=== PATIENT | male | born 1960 | race Caucasian/White ===

== ENCOUNTER 2017-07-29 16:52 | Inpatient (IN) | payer OTHER ==
[~2017-07-29] VITALS: Ht 172.7 cm; Wt 69.9 kg
[~2017-07-29 16:52] MED LIST: ALPRAZOLAM0.5 M4 PO; ASPIRIN EC81 M1 PO; AVODART0.5 M1 PO; CLARINEX5 M1 PO; GABAPENTIN300 M2 PO; HUMALOG100 UNIT/2 SC; LEVOTHYROXINE112 MCG PO; PRAVASTATIN SOD20 M2 PO; RAMIPRIL10 M1 PO; SERTRALINE HCL100 MG PO; VITAMIN D31000 UNI1 PO; [UNRECOGNIZED DRUG - OTHER]
--- NOTE | 2017-07-29 17:10 | ED GI/GU/ABDOMINAL COMPLAINT ---
History of Present Illness General Chief Complaint: General Adult Stated Complaint: BIBA HYPERGLYCEMIA Source: patient, old records Exam Limitations: no limitations Vital Signs & Intake/Output Vital Signs & Intake/Output Vital Signs Date Time Temp Pulse Resp B/P B/P Pulse O2 O2 Flow FiO2 Mean Ox Delivery Rate 07/30 0800 98.4 74 22 100/42 96 Room Air 04/ 0000 99.5 92 18 92/53 99 Room Air / 2110 98.7 108 28 120/62 100 Room Air 07/29 1953 96.7 108 28 124/63 99 Room Air / 1908 96.8 108 28 127/64 99 Room Air ED Intake and Output 07/30 0000 04/08 1200 Intake Total 2223 Output Total Balance 2223 Intake, IV 2223 Patient 154 lb Weight Weight Reported by Patient Measurement Method Allergies Coded Allergies: No Known Allergies (10/04/15) Triage Note: BIBA FROM HOME WITH CHIEF COMPLAINT "MY SUGAR IS HIGH". PER EMS PATIENT HAS ELEVATED BLOOD SUGAR ABOVE 500 ON ACCUCHECK. PATIENT REPORTS NAUSEA AND VOMITING. STATES HE WAS SEEN YESTERDAY IN ER FOR SAME COMPLAINT. HAS INSULIN PUMP THAT HAS NOT BEEN WORKING. PATIENT IS ALERT, ORIENTED, SPEECH CLEAR. AWAITING PROVIDER EVAL. Triage Nurses Notes Reviewed? yes Onset: Gradual Duration: getting worse Timing: recent history Quality/Severity: aching Severity Numbers: 7 Radiation: no radiation HPI: Patient is a 56-year-old male with a past medical history of hypothyroidism, hypercholesterolemia, restless leg syndrome type 1 diabetes with insulin pump and diabetic retinopathy who presents emergency room for concerns of elevated blood sugar and shaky chills and body aches in which she noted blood sugar to be over 500 on day today. Patient has had persistent nausea and vomiting, patient was evaluated here yesterday [facility] [place] [facility] for similar complaints in which he was safely discharged. (Sylvia LUJAN,Doyle) Reconcile Medications Alprazolam 0.5 MG TABLET 1 TAB PO TID PRN ANXIETY (Reported) Aspirin (Ecotrin*) 81 MG TABLET.DR 1 TAB PO DAILY HEART/BLOOD (Reported) Cholecalciferol (Vitamin D3) (Vitamin D3) (Unknown Strength) CAPSULE (Unknown Dose) PO DAILY SUPPLEMENT (Reported) Desloratadine (Clarinex) 5 MG TABLET 1 TAB PO DAILY ALLERGIES (Reported) Dutasteride (Avodart) 0.5 MG CAPSULE 1 CAP PO DAILY PROSTATE (Reported) Gabapentin 300 MG CAPSULE 1 CAP PO 4 TIMES/DAY NERVE PAIN (Reported) Gabapentin 300 MG CAPSULE 300 MG PO BID pain Heparin (Heparin-1/2NS 25,000 Units/500) 25,000 UNIT/500 ML (50 UNIT/ML) IV.SOLN 1 BAG IV ONCE SD Insulin Aspart (Novolog) 100 UNIT/ML VIAL 0 SC Q4 DM TYPE 1 Blood Insulin Sugar Units <150 0 151-200 3 201-250 4 251-300 5 301-350 6 351-400 7 >400 8 Call Doctor Insulin Detemir (Levemir) 100 UNIT/ML VIAL 7 UNIT SC BID DM TYPE 1 Levothyroxine Sodium 112 MCG TABLET 1 TAB PO DAILY AC THYROID (Reported) Ondansetron HCl/Pf (Ondansetron HCl 4 MG/2 Ml Vial) 4 MG/2 ML VIAL 4 MG IV Q6P PRN NAUSEA/VOMITING Pantoprazole Sodium 40 MG VIAL 40 MG IV DAILY GI ppt Pravastatin Sodium 20 MG TABLET 1 TAB PO DAILY CHOLESTEROL (Reported) Ramipril 10 MG CAPSULE 1 CAP PO BID BP (Reported) Sertraline HCl 100 MG TABLET 0.5 TAB PO DAILY MENTAL HEALTH (Reported) [Veramy] (Reported) (Lynda LOPEZ,Debo Arriaga) Past History Travel History Traveled to [place] past 21 day No Medical History Any Pertinent Medical History? 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 No (Doyle De Santiago) Review of Systems Review of Systems Constitutional: Reports: see HPI, chills. EENTM: Reports: no symptoms. Respiratory: Reports: no symptoms. Cardiovascular: Reports: no symptoms. GI: Reports: see HPI, nausea, vomiting. Denies: abdominal pain. Genitourinary: Reports: no symptoms. Musculoskeletal: Reports: see HPI, joint pain, muscle pain. Skin: Reports: no symptoms. Neurological/Psychological: Reports: see HPI. Hematologic/Endocrine: Reports: no symptoms. Immunologic/Allergic: Reports: no symptoms. All Other Systems: Reviewed and Negative (Doyle De Santiago) Physical Exam Physical Exam General Appearance: lethargic, mild distress Head: atraumatic Eyes: Bilateral: normal appearance. Ears, Nose, Throat, Mouth: hearing grossly normal Neck: normal inspection Respiratory: normal breath sounds, chest non-tender Cardiovascular: tachycardia Gastrointestinal: normal bowel sounds, soft, non-tender Extremities: normal range of motion Neurologic/Psych: no motor/sensory deficits, oriented x 3 Skin: intact, normal color Core Measures ACS in differential dx? Yes Sepsis Present: Yes Sepsis Focused Exam Completed? Yes (Doyle De Santiago) Progress Differential Diagnosis: appendicitis, biliary colic, bowel obstruction, cholecystitis, diverticulitis, gastritis, ischemic bowel, SBO Plan of Care: Orders Procedure Date/time Status Nothing by Mouth 07/30 B Active TROPONIN LEVEL 07/30 1200 Complete ICU LAB BUNDLE 07/30 1200 Complete EKG 07/30 1200 Active PARTIAL THROMBOPLASTIN TIME 07/30 1000 Complete Change service to 07/30 0845 Active CULTURE,URINE 07/30 0757 Active CULTURE,URINE 07/30 0635 Active TROPONIN LEVEL 07/30 0600 Complete EKG 07/30 0600 Active ICU LAB BUNDLE 07/30 0500 Complete GLYCOSYLATED HGB 07/30 0500 Complete CBC WITHOUT DIFFERENTIAL 07/30 0500 Complete Heparin Drip- ACS 07/30 0235 Active PARTIAL THROMBOPLASTIN TIME 07/30 0150 Complete Lab Add-on Test 07/30 0028 Active Lab Add-on Test 07/30 UNK Active Straight Cath 07/30 UNK Complete Sanchez, Insertion/Removal/Asses 07/30 UNK Active Wound Care/Dressing 07/29 2343 Active Weight 07/29 2343 Active VTE Mechanical Prophylaxis 07/29 2343 Active Vital Signs 07/29 2343 Active Turn and Reposition 07/29 2343 Active Drains/Tubes 07/29 2343 Active Teach/Educate 07/29 2343 Active Skin Integrity Protocol 07/29 2343 Active Skin/Pressure Ulcer Assess (Sk 07/29 2343 Active Precautions 07/29 2343 Active Pain Treatment and Response 04/08 2343 Active Nutritional Intake, Monitor 07/29 2343 Active Isolation 07/29 2343 Active CIWA 07/29 234 Active Patient Care Conference 07/29 234 Active Activity/Ambulation 07/29 234 Active TROPONIN LEVEL 07/29 2330 Complete LACTIC ACID 07/29 2330 Complete EKG 07/29 2330 Active BASIC ELECTROLYTES PLUS BUN&CR 07/29 2315 Complete VRE ACTIVE SURVIELLANCE 07/29 2199 Active MRSA SCREENING 07/29 220 Active EKG 07/29 213 Active ICU LAB BUNDLE 07/29 2129 Complete Lab Add-on Test 07/29 204 Active TROPONIN LEVEL 07/29 2030 Complete EKG 07/29 2030 Active ICU LAB BUNDLE 07/29 2020 Complete Lab Add-on Test 07/29 193 Active BLOOD CULTURE 07/29 1928 Active URINALYSIS 07/29 1928 Complete Saline Lock 07/29 1925 Active Pathway - chart 07/29 1925 Active House Staff 07/29 1925 Active Code Status 07/29 192 Active THYROID STIMULATING HORMONE 07/29 1726 Complete INSULIN,SERUM 07/29 1726 Complete FREE T4 07/29 1726 Complete CORTISOL PM 07/29 1726 Complete VTE Mechanical Prophylaxis 07/29 UNK Active Vital Signs 07/29 UNK Active Intake & Output 07/29 UNK Active Hemoccult 07/29 UNK Active FingerStick- Glucose 07/29 UNK Active Current Medications Sig/Mary Start time Last Medication Dose Stop Time Status Admin Lisinopril 40 MG BID 07/30 1000 CAN (Prinivil) Potassium Chloride 20 MEQ CONTINOUS INFUSION 07/30 0700 CAN (KCl 20MEQ in D5W 1/ 2NS 1000ML) Sodium Bicarbonate 150 MEQ Q8H 07/30 0430 CAN (Sodium Bicarbonate 8.4%) Dextrose/Water 1,000 ML (D5W 1000) Laboratory Tests 07/30/17 1150: Anion Gap 8, Estimated GFR 39 L, Glucose 92, Calcium 8.3 L, Phosphorus 3.5, Magnesium 1.9, Total Bilirubin 0.4, AST 64 H, ALT 36, Troponin I 17.50 *H, Albumin 2.6 L, APTT 41 H 07/30/17 0645: Urine Color YEL, Urine Clarity CLEAR, Urine pH 6.0, Ur Specific Fountain 1.020, Urine Protein NEG, Urine Ketones 15 H, Urine Nitrite NEG, Urine Bilirubin NEG, Urine Urobilinogen 0.2, Ur Leukocyte Esterase NEG, Ur Microscopic EXAM NOT REQUIRED, Urine Hemoglobin NEG, Urine Glucose >=1000 H 07/30/17 0600: Troponin I 16.00 *H 07/30/17 0600: Anion Gap 10, Estimated GFR 37 L, Glucose 246 H, Calcium 8.2 L, Phosphorus 3.3, Magnesium 1.9, Total Bilirubin 0.4, AST 55, ALT 32, Albumin 3.0 L, CBC w Diff MAN DIFF ORDERED, RBC 3.50 L, MCV 89.6, MCH 30.7, MCHC 34.3, RDW 14.1, MPV 9.6, Gran % 87.1 H, Lymphocytes % 6.2 L, Monocytes % 6.7, Eosinophils % 0, Basophils % 0, Absolute Granulocytes 19.8 H, Segmented Neutrophils 86 H, Band Neutrophils 1, Absolute Lymphocytes 1.4, Lymphocytes 10 L, Monocytes 2, Absolute Monocytes 1.5 H, Absolute Eosinophils 0, Absolute Basophils 0, Metamyelocytes 1, Platelet Estimate ADEQUATE, Polychromasia 1+, Ovalocytes FEW, Fld Total RBCs Counted 100 07/30/17 0500: Hemoglobin A1c 7.9 H 07/30/17 0210: APTT 111 *H 07/29/17 2315: Anion Gap 16, Estimated GFR 35 L, BUN/Creatinine Ratio 24.0, Lactic Acid 1.6, Troponin I 3.98 *H 07/29/17 2150: Anion Gap 18 H, Estimated GFR 35 L, Glucose 512 *H, Calcium 7.8 L, Phosphorus 3.9, Magnesium 1.9, Total Bilirubin 0.5, AST 25, ALT 25, Albumin 3.0 L 07/29/17 2130: Sodium Cancelled, Potassium Cancelled, Chloride Cancelled, Carbon Dioxide Cancelled, Anion Gap Cancelled, BUN Cancelled, Creatinine Cancelled, BUN/ Creatinine Ratio Cancelled 07/29/172019: Troponin I 1.02 *H 07/29/172019: Lactic Acid 2.5 H 07/29/172019: Bicarbonate Actual 11 L, Mixed VBG pH 7.21 L, Mixed VBG pCO2 28 L, Mixed VBG O2 Saturation 51 H, Carboxyhemoglobin 0.2 L, O2 Concentration % R/A, Anion Gap 20 H, Estimated GFR 33 L, Glucose 555 *H, Calcium 8.0 L, Phosphorus 4.8 H, Magnesium 1.9, Total Bilirubin 0.5, AST 22, ALT 28, Albumin 3.3 L, Phlebotomy Draw Site VENOUS Microbiology 07/30 112 URINE ROUT: Urine Culture - RECD 07/30 644 URINE ROUT: Urine Culture - RECD 07/29 2199 UPPER RESP: Surveillance Culture - RECD 07/29 2199 GI: Surveillance Culture - RECD 07/30 2019 BLOOD: Blood Culture - RES 07/29 2008 BLOOD: Blood Culture - RES 07/29 1928 URINE ROUT: Urine Culture - CAN Cancelled: NO URINE COLLECTED ON THIS DATE Differential diagnosis include hyper glycemia, diabetic ketoacidosis,HHS, myocardial infarction viral syndrome cholecystitis cholangitis Nursing staff indicates that patient's blood glucose fingerstick was over 500 patient is alert and oriented nontender abdomen Patient's critical findings of elevated troponin and concerns of DKA and acute renal failure IV fluids were initially administered however insulin bolus and drip were ordered patient's potassium was unremarkable discussed admission with patient who is aware Although patient does meet sepsis criteria no overt findings of bacterial infection at this time after CT scan was resulted No antibiotics will be administered upon admission And most likely DKA caused leukocytosis Dr. Howell also was aware admission and discussed patient with Dr. Fry for elevated troponin Diagnostic Imaging: Viewed by Me: Radiology Read, CT Scan. Radiology Impression: no acute abnormality Initial ED EKG: SINUS TACHYCARDIA 110 BPM Comments: PATIENT: DEBO RUBALCAVA PRESENT AGE: 56 PATIENT ACCOUNT NO: [id number] : 58 LOCATION: [facility] ORDERING PHYSICIAN: Doyle LUJAN SERVICE DATE: 07/29/17 EXAM TYPE: CAT - CT ABD & PELVIS W/O IV CONTRAS; CT CHEST WO IV CONTRAST EXAMINATION: CT CHEST WITHOUT CONTRAST CT ABDOMEN AND PELVIS WITHOUT CONTRAST CLINICAL INFORMATION: Chest pain. DKA. Chills and vomiting. COMPARISON: Chest radiography earlier today. DLP: 452 mGy-cm TECHNIQUE: Axial images of the chest, abdomen, and pelvis were obtained without intravenous contrast. Reformatted images were reviewed. FINDINGS: THORAX: No consolidation suspicious for pneumonia or pulmonary edema. Mild atelectasis at the left lung base. No pleural effusion. The trachea and central airways are patent. No bulky mediastinal adenopathy. Mild coronary artery calcification. Bilateral gynecomastia. ABDOMEN/PELVIS: No pneumoperitoneum or ascites. Changes of hepatic steatosis. No focal hepatic lesion demonstrated. No biliary ductal dilatation. No discrete gallstones. The pancreas, spleen, and adrenal glands demonstrate no focal abnormality. No hydronephrosis. Punctate nonobstructing calculus in the upper pole of the right kidney. Scattered renal vascular calcifications. Bowel gas pattern is nonobstructive. Apparent mild mural thickening in the cecum/ascending colon and also the distal transverse colon, which may at least in part be secondary to colonic decompression. No acute small bowel pathology demonstrated. The appendix is not discretely visualized. No adenopathy. Scattered atherosclerotic calcification. No free pelvic fluid. The bladder is unremarkable. No significant prostatomegaly. MUSCULOSKELETAL: No acute osseous abnormalities. Mild degenerative changes of the spine. IMPRESSION: 1. A couple [id number] length segments of questionable mural thickening of the colon involving the cecum/ascending colon and distal transverse colon. This may at least in part be due to colonic decompression; however, subtle colitis is not excluded. 2. Nonobstructive bowel gas pattern. 3. No acute thoracic pathology. 4. Hepatic steatosis. 5. Tiny punctate nonobstructing calculus in the upper pole of the right kidney. Other scattered renal vascular calcifications. 6. Additional findings as described above. DICTATED BY: Obed Porras MD DATE/TIME DICTATED:07/29/171902 RN SOCIAL SERVICES:ALBA DATE/TIME TRANSCRIBED:07/29/171902 PATIENT: DEBO RUBALCAVA PRESENT AGE: 56 PATIENT ACCOUNT NO: [id number] : 58 LOCATION: [facility] ORDERING PHYSICIAN: Doyle LUJAN SERVICE DATE: 07/29/17 EXAM TYPE: RAD - XRY-PORTABLE CHEST XRAY EXAMINATION: XR PORTABLE CHEST CLINICAL INFORMATION: Cough and chills. DKA. COMPARISON: Chest radiography 10/04/2015. TECHNIQUE: Portable frontal view of the chest was obtained. FINDINGS: No new significant abnormality is noted involving the heart, lungs, mediastinum, bony thorax or soft tissues. IMPRESSION: No acute pulmonary pathology demonstrated. No significant interval change compared to prior chest radiography. DICTATED BY: Obed Porras MD DATE/TIME DICTATED:07/29/171856 (Sylvia LUJAN,Doyle) ED Sepsis Exam Date of Focused Sepsis Exam: 07/29/17 Time of Focused Sepsis Exam: 183 Sepsis Cardiac Exam: Tachycardia Sepsis Resp Exam: CTA Sepsis Cap Refill Exam: <2 Sec Sepsis Peripheral Pulse Exam: Normal Sepsis Peripheral Pulse Location: Radial Sepsis Skin Color Exam: Normal for Ethnicity Skin Temp/Moisture Exam: Warm/Dry (Doyle De Santiago) Departure Departure Disposition: STILL A PATIENT Condition: Critical Clinical Impression Primary Impression: DKA (diabetic ketoacidoses) Secondary Impressions: ARF (acute renal failure), Elevated troponin Referrals: Ashwin Batista MD (PCP/Family) Departure Forms: Customer Survey General Discharge Information (Doyle De Santiago) Departure Prescriptions: Current Visit Scripts Gabapentin 300 MG PO BID 28 Days Heparin (Heparin-1/2NS 25,000 Units/500) 1 BAG IV ONCE 1 Days Insulin Aspart (Novolog) 0 SC Q4 1 Days Blood Insulin Sugar Units <150 0 151-200 3 201-250 4 251-300 5 301-350 6 351-400 7 >400 8 Call Doctor Ondansetron HCl/Pf (Ondansetron HCl 4 MG/2 Ml Vial) 4 MG IV Q6P PRN NAUSEA/ VOMITING 1 Days Pantoprazole Sodium 40 MG IV DAILY 1 Days Insulin Detemir (Levemir) 7 UNIT SC BID 5 Days Admission Note Spoke With: Bruce Summers MD Documentation of Exam: Documentation of any treatments & extenuating circumstances including Concerns Regarding Discharge (functional status, medication knowledge or non-compliance, living conditions, etc.) that warrant an admission rather than observation: [ICU admission, aggressive hydration, insulin drip, cardiology consultation (that will was notified), endocrinology consultation] PA/RESTAURANT RECRUITER Co-Sign Statement Statement: ED Attending supervision documentation- [X] I saw and evaluated the patient. I have also reviewed all the pertinent lab results and diagnostic results. I agree with the findings and the plan of care as documented in the PA's/RESTAURANT RECRUITER's documentation. [X]X I have reviewed the ED Record and agree with the PA's/RESTAURANT RECRUITER's documentation. [] Additions or exceptions (if any) to the PAs/RESTAURANT RECRUITER's note and plan are summarized below: [] (Lynda LOPEZ,Debo Arriaga) Critical Care Note Critical Care Note Critical Care Time: 75-104 min (Doyle De Santiago) Critical Care Note Critical Care Time: mins: (120 MIN) (Lynda LOPEZ,Debo Arriaga)
[2017-07-29 17:40] LABS: ABSOLUTE BASOPHIL COUNT 0 /CUMM (0.0-0.2); ABSOLUTE EOSINOPHIL COUNT 0 /CUMM (0.0-0.7); ABSOLUTE GRANULOCYTE CT 19.9 /CUMM (1.4-6.5); ABSOLUTE LYMPH COUNT 1.2 /CUMM (1.2-3.4); ABSOLUTE MONOCYTE COUNT 0.6 /CUMM (0.10-0.60); BASOPHIL % 0.2 % (0.0-2.0); EOSINOPHIL % 0.1 % (0-5); GRANULOCYTE % 91.3 % (42.2-75.2); HEMATOCRIT 35.1 % (42-52); MEAN CORPUSCULAR HGB 30.1 PG (27.0-31.0); MEAN CORPUSCULAR HGB CONC 33.3 G/DL (33.0-37.0); MEAN CORPUSCULAR VOLUME 90.4 FL (80.0-94.0); MEAN PLATELET VOLUME 10.4 FL (7.4-10.4); PLATELET COUNT 190 /CUMM (130-400); RBC DISTRIBUTION WIDTH 14.7 % (11.5-14.5); RED BLOOD CELL CT 3.88 /CUMM (4.70-6.10); WHITE BLOOD CELL COUNT 21.9 /CUMM (4.8-10.8)
--- NOTE | 2017-07-29 19:02 | RADIOLOGY REPORT ---
EXAMINATION: XR PORTABLE CHEST CLINICAL INFORMATION: Cough and chills. DKA. COMPARISON: Chest radiography 10/04/2015. TECHNIQUE: Portable frontal view of the chest was obtained. FINDINGS: No new significant abnormality is noted involving the heart, lungs, mediastinum, bony thorax or soft tissues. IMPRESSION: No acute pulmonary pathology demonstrated. No significant interval change compared to prior chest radiography.
--- NOTE | 2017-07-29 19:24 | CT SCAN REPORT ---
EXAMINATION: CT CHEST WITHOUT CONTRAST CT ABDOMEN AND PELVIS WITHOUT CONTRAST CLINICAL INFORMATION: Chest pain. DKA. Chills and vomiting. COMPARISON: Chest radiography earlier today. DLP: 452 mGy-cm TECHNIQUE: Axial images of the chest, abdomen, and pelvis were obtained without intravenous contrast. Reformatted images were reviewed. FINDINGS: THORAX: No consolidation suspicious for pneumonia or pulmonary edema. Mild atelectasis at the left lung base. No pleural effusion. The trachea and central airways are patent. No bulky mediastinal adenopathy. Mild coronary artery calcification. Bilateral gynecomastia. ABDOMEN/PELVIS: No pneumoperitoneum or ascites. Changes of hepatic steatosis. No focal hepatic lesion demonstrated. No biliary ductal dilatation. No discrete gallstones. The pancreas, spleen, and adrenal glands demonstrate no focal abnormality. No hydronephrosis. Punctate nonobstructing calculus in the upper pole of the right kidney. Scattered renal vascular calcifications. Bowel gas pattern is nonobstructive. Apparent mild mural thickening in the cecum/ascending colon and also the distal transverse colon, which may at least in part be secondary to colonic decompression. No acute small bowel pathology demonstrated. The appendix is not discretely visualized. No adenopathy. Scattered atherosclerotic calcification. No free pelvic fluid. The bladder is unremarkable. No significant prostatomegaly. MUSCULOSKELETAL: No acute osseous abnormalities. Mild degenerative changes of the spine. IMPRESSION: 1. A couple [id number] length segments of questionable mural thickening of the colon involving the cecum/ascending colon and distal transverse colon. This may at least in part be due to colonic decompression; however, subtle colitis is not excluded. 2. Nonobstructive bowel gas pattern. 3. No acute thoracic pathology. 4. Hepatic steatosis. 5. Tiny punctate nonobstructing calculus in the upper pole of the right kidney. Other scattered renal vascular calcifications. 6. Additional findings as described above.
--- NOTE | 2017-07-29 19:30 | History & Physical ---
Pablo Hansen [birth year]/171928: General Information and HPI MD Statement: I have seen and personally examined DEBO RUBALCAVA and documented this H&P. The patient is a 56 year old M who presented with a patient stated chief complaint of [N/V/D]. Source of Information: patient, family, old records Exam Limitations: poor historian History of Present Illness: This is a 56 year old male with PMH of hypothyroidism, hypercholestrolemia, restless leg syndrome, anxiety, depression, diabetes mellitus type 1 currently on insulin pump, diabetic neuropathy, chronic kidney disease stage 3. He Represented to the emergency department with a chief complaint of nausea, vomiting, diarrhea along with chest pain and shortness of breath. Patient stated that he came yesterday to the emergency department because of the nausea and vomiting and difficulty to keep down solid food his blood glucose was 427 with normal anion gap and bicarbonate patient was discharged home. So he came today again due to concerns of elevated blood sugar and shaky chills and body aches in which his noted that his blood sugar to be over 500 on day today. Patient has had persistent nausea and vomiting(bile content, nonbloody) for more than 3 time since yesterday and he stated that the last meal was at yesterday noon time, along with symptoms patient stated that he has 2-3 watery loose stool that started today, associated with above symptoms he reports some chills and muscle spasm but he deny fever or abdominal pain. He also reports numbness of his hands and feet with tingling sensation. Patient also reports some blurry vision in the past couple weeks. Also patient stated that yesterday he started to feel chest pain all over his chest, radiating to the back 7-8 out of 10 in severity, aching in nature associated with some shortness of breath and hyperventilation with mild heart racing, he think all because he did not got his gabapentin and also reports all over body ache. Patient deny any fever, headaches, constipation, abdominal pain, hematuria, dysuria, sick contact, headaches, bloody bowel movement, lower extremity edema. States last time he checked his hemoglobin A1c was in May 2017 was 8.4% and according to his he follow strict diabetic diet. Patient deny any recent admission secondary to DKA. 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 Ibarra, last time you follow-up with him was last year and he had done echocardiogram that was within normal. In ED he was found to have severe anion gap metabolic acidosis with bicarbonate of 9, hyperlipidemia potassium 5.9 and blood glucose of 517, + troponin. He received a total of 3 L normal saline bolus and started on insulin drip after receiving 10 units of Novolin IV, also patient started on bicarbonate drip after receiving 50 mg bicarbonate and full dose of ASA, IV zofran. Last admission to wasn't 2016 that was for DKA treated with insulin drip and acute and chronic kidney disease treated with IV fluid hydration. Allergies/Medications Allergies: Coded Allergies: No Known Allergies (10/04/15) Home Med list Alprazolam 0.5 MG TABLET 1 TAB PO TID PRN ANXIETY (Reported) Aspirin (Ecotrin*) 81 MG TABLET.DR 1 TAB PO DAILY HEART/BLOOD (Reported) Cholecalciferol (Vitamin D3) (Vitamin D3) (Unknown Strength) CAPSULE (Unknown Dose) PO DAILY SUPPLEMENT (Reported) Desloratadine (Clarinex) 5 MG TABLET 1 TAB PO DAILY ALLERGIES (Reported) Dutasteride (Avodart) 0.5 MG CAPSULE 1 CAP PO DAILY PROSTATE (Reported) Gabapentin 300 MG CAPSULE 1 CAP PO 4 TIMES/DAY NERVE PAIN (Reported) Gabapentin 300 MG CAPSULE 300 MG PO BID pain Heparin (Heparin-1/2NS 25,000 Units/500) 25,000 UNIT/500 ML (50 UNIT/ML) IV.SOLN 1 BAG IV ONCE SC Insulin Aspart (Novolog) 100 UNIT/ML VIAL 0 SC Q4 DM TYPE 1 Blood Insulin Sugar Units <150 0 151-200 3 201-250 4 251-300 5 301-350 6 351-400 7 >400 8 Call Doctor Insulin Detemir (Levemir) 100 UNIT/ML VIAL 7 UNIT SC BID DM TYPE 1 Levothyroxine Sodium 112 MCG TABLET 1 TAB PO DAILY AC THYROID (Reported) Ondansetron HCl/Pf (Ondansetron HCl 4 MG/2 Ml Vial) 4 MG/2 ML VIAL 4 MG IV Q6P PRN NAUSEA/VOMITING Pantoprazole Sodium 40 MG VIAL 40 MG IV DAILY GI ppt Pravastatin Sodium 20 MG TABLET 1 TAB PO DAILY CHOLESTEROL (Reported) Ramipril 10 MG CAPSULE 1 CAP PO BID BP (Reported) Sertraline HCl 100 MG TABLET 0.5 TAB PO DAILY MENTAL HEALTH (Reported) [Veramy] (Reported) Past History Travel History Traveled to [place] past 21 day No Medical History Neurological: peripheral neuropathy, restless leg syndrome EENT: allergies Cardiovascular: hypercholestrolemia Respiratory: NONE Gastrointestinal: NONE Hepatic: NONE Renal: benign prost hyperplasia Musculoskeletal: 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 partner at home Services at Home: None ETOH Use: denies use Illicit Drug Use: denies illicit drug use Functional Ability ADLs Independent: dressing, eating, toileting, bathing. Ambulation: independent IADLs Independent: shopping, housework, finances, food prep, telephone, transportation , medication admin. Review of Systems Review of Systems Constitutional: Reports: see HPI. Cardiovascular: Reports: see HPI. Respiratory: Reports: see HPI. GI: Reports: see HPI. Genitourinary: Reports: see HPI. Exam & Diagnostic Data Last 24 Hrs of Vital Signs/I&O Vital Signs Date Time Temp Pulse Resp B/P B/P Pulse O2 O2 Flow FiO2 Mean Ox Delivery Rate 07/29 1952 96.7 108 28 124/63 99 Room Air 07/29 1908 96.8 108 28 127/64 99 Room Air 07/29 1814 96.8 108 24 122/60 99 Room Air 07/29 1738 98 Room Air 07/29 1704 96.6 110 24 163/69 100 Physical Exam General Appearance Alert, Oriented X3, Cooperative, Mild Distress Skin Temp/Moisture Exam: Warm/Dry HEENT Atraumatic, PERRLA, EOMI Neck Supple, No JVD Cardiovascular Normal S1, Normal S2, Tachycardic, No chest pain on Exam Lungs Clear to Auscultation, Normal Air Movement Abdomen Normal Bowel Sounds, Soft, No Tenderness, No Hepatospenomegaly Extremities No Cyanosis, No Edema, Normal Pulses Last 24 Hrs of Labs/Praveen: Laboratory Tests 07/29/17 2020: Troponin I Pending 07/29/17 2020: Lactic Acid Pending 04/08/18 2020: Bicarbonate Actual 11 L, Mixed VBG pH 7.21 L, Mixed VBG pCO2 28 L, Mixed VBG O2 Saturation 51 H, Carboxyhemoglobin 0.2 L, O2 Concentration % R/A, Sodium Pending, Potassium Pending, Chloride Pending, Carbon Dioxide Pending, Anion Gap Pending, BUN Pending, Creatinine Pending, BUN/Creatinine Ratio Pending, Phlebotomy Draw Site VENOUS 07/29/17 1726: Anion Gap 25 H, Estimated GFR 29 L, BUN/Creatinine Ratio 20.9, Glucose 617 *H, Insulin Level 0.6 L, Serum Osmolality 333 H, Lactic Acid 4.0 H, Calcium 8.8, Magnesium 2.0, Total Bilirubin 0.6, AST 20, ALT 26, Alkaline Phosphatase 110, Troponin I 0.32 *H, Total Protein 6.2 L, Albumin 3.7, Globulin 2.5, Albumin/ Globulin Ratio 1.5, TSH 2.260, Free T4 2.42 H, Cortisol PM Sample Pending, CBC w Diff MAN DIFF ORDERED, RBC 3.88 L, MCV 90.4, MCH 30.1, MCHC 33.3, RDW 14.7 H , MPV 10.4, Gran % 91.3 H, Lymphocytes % 5.6 L, Monocytes % 2.8, Eosinophils % 0.1, Basophils % 0.2, Absolute Granulocytes 19.9 H, Segmented Neutrophils Pending, Absolute Lymphocytes 1.2, Absolute Monocytes 0.6, Absolute Eosinophils 0, Absolute Basophils 0, Acetone Level POSITIVE AT 1:8 DIL 07/29/17 1722: TSH Cancelled, Free T4 Cancelled Microbiology 07/30 2019 BLOOD: Blood Culture - RECD 07/29 2008 BLOOD: Blood Culture - RECD 07/29 1928 URINE ROUT: Urine Culture - ORD 07/29 172 NASOPHARYN: Influenza Virus A & B Rapid Smear - COMP Diagnostic Data EKG Results Sinus tachycardic heart rate 110. QTC 439. HI 156. Compared with the EKG that was done yesterday there is 0.5-[address] segment elevation in V1. With some nonspecific ST-T changes in V4 V5 and V6. CXR Results EXAMINATION: XR PORTABLE CHEST CLINICAL INFORMATION: Cough and chills. DKA. COMPARISON: Chest radiography 10/04/2015. TECHNIQUE: Portable frontal view of the chest was obtained. FINDINGS: No new significant abnormality is noted involving the heart, lungs, mediastinum, bony thorax or soft tissues. IMPRESSION: No acute pulmonary pathology demonstrated. No significant interval change compared to prior chest radiography. Other Results EXAMINATION: CT CHEST WITHOUT CONTRAST CT ABDOMEN AND PELVIS WITHOUT CONTRAST CLINICAL INFORMATION: Chest pain. DKA. Chills and vomiting. COMPARISON: Chest radiography earlier today. DLP: 452 mGy-cm TECHNIQUE: Axial images of the chest, abdomen, and pelvis were obtained without intravenous contrast. Reformatted images were reviewed. FINDINGS: THORAX: No consolidation suspicious for pneumonia or pulmonary edema. Mild atelectasis at the left lung base. No pleural effusion. The trachea and central airways are patent. No bulky mediastinal adenopathy. Mild coronary artery calcification. Bilateral gynecomastia. ABDOMEN/PELVIS: No pneumoperitoneum or ascites. Changes of hepatic steatosis. No focal hepatic lesion demonstrated. No biliary ductal dilatation. No discrete gallstones. The pancreas, spleen, and adrenal glands demonstrate no focal abnormality. No hydronephrosis. Punctate nonobstructing calculus in the upper pole of the right kidney. Scattered renal vascular calcifications. Bowel gas pattern is nonobstructive. Apparent mild mural thickening in the cecum/ascending colon and also the distal transverse colon, which may at least in part be secondary to colonic decompression. No acute small bowel pathology demonstrated. The appendix is not discretely visualized. No adenopathy. Scattered atherosclerotic calcification. No free pelvic fluid. The bladder is unremarkable. No significant prostatomegaly. MUSCULOSKELETAL: No acute osseous abnormalities. Mild degenerative changes of the spine. IMPRESSION: 1. A couple [id number] length segments of questionable mural thickening of the colon involving the cecum/ascending colon and distal transverse colon. This may at least in part be due to colonic decompression; however, subtle colitis is not excluded. 2. Nonobstructive bowel gas pattern. 3. No acute thoracic pathology. 4. Hepatic steatosis. 5. Tiny punctate nonobstructing calculus in the upper pole of the right kidney. Other scattered renal vascular calcifications. 6. Additional findings as described above. Assessment/Plan Assessment: This is a 56 year old male with PMH of hypothyroidism, hypercholestrolemia, restless leg syndrome, anxiety, depression, diabetes mellitus type 1 currently on insulin pump, diabetic neuropathy, chronic kidney disease stage 3. He Represented to the emergency department with a chief complaint of nausea, vomiting, diarrhea along with chest pain and shortness of breath. Corrected sodium 145 Problem list: -DKA with lactic acidosis anion gap metabolic acidosis. -Pseudohypernatremia due to above. -Volume depletion due to above. -KIRAN on CKD stage III. -Chest pain with SOB. -trop with EKG changes of mild ST-elevation in V1 and nonspecific ST-T changesV4.5.6 the -Leukocytosis Plan: -Admit patient to the critical care unit -Vitals every shift, Accu-Chek every 1 hr -Continue insulin drip and adjust the dose according to the Accu-Chek -ICU bundle every 2 hrs then every 4 hrs if needed. -Start normal saline of 200 mL per hour after he finished a total 3 normal saline bolus. -40 mg of potassium in NS @ 250 cc/hr if the p.t still dehydrated and the potassium < 5.3. -We will change the IVF to D5 1/2 NS with 20 mg K as soon as his BS <250. -We will Keep the P.t on insulin drip overnight as recommended by Nasir. -Obtain hemoglobin A1c, free T4, TSH, mag. -Trend lactic acid, check insulin drip -Endocrinology consultation -A dose of sublingual nitroglycerin -We will give the patient home dose of gabapentin -Serial troponin and EKG to rule out ACS -Echocardiogram -IV heparin drip as recommended by cardiology , also he recommended NTG and hold off metoprolol for now, and to cont his home medications. -Cardiology consultation -GI prophylaxis with IV 40 mg Protonix daily -IV Zofran as needed for nausea and vomiting -Blood culture, urine culture and urine analysis -Cont his home medications -Pain pathway -DVT ppt: Heparin drip -Full code I Spoke with Dr. Mckee over the phone around 8:55 PM he agreed with the plan for now. if There are any issue overnight will contact him back for further advice and recommendation As Ranked By This Provider Problem List: 1. Elevated troponin 2. KIRAN (acute kidney injury) 3. DKA (diabetic ketoacidoses) 4. Nausea vomiting and diarrhea Core Measures/Misc (01/07) Congestive Heart Failure Congestive Heart Failure Diagnosis No Cerebrovascular Accident CVA/TIA Diagnosis: No VTE (View Protocol) VTE Risk Factors Age>40 No Mechanical VTE Prophylaxis d/t N/A MechProphylax Ordered No VTE Pharm Prophylaxis d/t NA PharmProphylax ordered Sepsis (View protocol) Sepsis Present: No Bruce Summers MD 07/29/172131: Core Measures/Misc (01/07) Acute Coronary Syndrome ACS Diagnosis: No Attending MD Review Statement Attending Statement Attending MD Statement: examined this patient, discuss w/resident/PA/DECK MOLDER, agreed w/resident/PA/DECK MOLDER, reviewed EMR data (avail) Attending Assessment/Plan: Mr. Rubalcava is a 56 y/o Male with history of type 1 diabetes mellitus on insulin pump with complications of diabetic neuropathy, diabetic nephropathy, also has hypothyroidism and dyslipidemia restless leg syndrome presented to the ED with complaints of nausea vomiting diarrhea. And apparently came to the ED yesterday because of similar symptoms unable to keep food down, when his glucose was about 400s and normal anion gap, so patient was discharged home. He returns back as his symptoms are not improving. His hemoglobin A1c was in May 2017 was 8.4% . Has some chest discomfort which is present on and off, no aggravating or relieving factor last for a few minutes. On examination blood pressure initially was 163/69, heart rate of 110, temperature of 96.6 and respiratory rate of 24 General Appearance Alert, Oriented X3, mild distress Skin Temp/Moisture Exam: Warm. Dry mucous membranes HEENT Atraumatic, PERRLA, EOMI Neck Supple, No JVD Cardiovascular Normal S1, Normal S2, Tachycardia, non tender to palpation Lungs Clear to Auscultation, Normal Air Movement Abdomen Normal Bowel Sounds, Soft, No Tenderness, No Hepatospenomegaly Extremities No Cyanosis, No Edema, Normal Pulses Neuro: No focal neurological deficit Assessement 1. Diabetic Ketoacidosis presenting with anion gap metabolic acidosis 2. Type I DM on Insulin pump 3. Chest discomfort with elevated troponin - non specific ST-T changes in V4-V6 and lead I 4. Leucocytosis 5. KIRAN on CKD Plan Admit to ICU. NPO. Insulin infusion with IVF. Hydrate to give at least 4 liters of NS Change IVF to D5 0.5% NS with 20 mg of potassium once Blood sugar levels are less than 250 BMP Q 4 hrly. Obtain Magnesium and Phosphorus levels as well Endocrinology consulted. Will trend lactic acid Echocardiologram - EKG and troponins will be trended - Cardiology consultation Initiated on Heparin infusion for NSTEMI Panculture for Leucocytosis - likely reactive - watch off of antibiotics
--- NOTE | 2017-07-29 20:25 | Cons- Cardiology ---
General Information and HPI Consulting Request Date of Consult: 07/29/17 Requested By: Bruce Summers MD Reason for Consult: positive troponin, chest pain History of Present Illness: The patient is a 56-year-old male with history of type 1 diabetes, chronic kidney disease, and hypothyroidism who presented with nausea, vomiting, diarrhea , and chest discomfort. The chest discomfort was an intermittent aching across his entire chest which was an 8 out of 10 in severity, and was intermittent over the past 24 hours. He is currently pain-free. He notes that he has frequent body aches secondary to his neuropathy, and he believes that the pain was secondary to his neuropathy. He was evaluated in the emergency department and was found to be in DKA. Initial troponin was 0.32, and this subsequently increased to 1.0. EKG revealed nonspecific ST abnormality. There was no ST elevation suggestive of acute STEMI. No shortness of breath. No syncope. No orthopnea. He notes intermittent mild palpitations Allergies/Medications Allergies: Coded Allergies: No Known Allergies (10/04/15) Home Med List: Alprazolam 0.5 MG TABLET 1 TAB PO TID PRN ANXIETY (Reported) Aspirin (Ecotrin*) 81 MG TABLET.DR 1 TAB PO DAILY HEART/BLOOD (Reported) Cholecalciferol (Vitamin D3) (Vitamin D3) (Unknown Strength) CAPSULE (Unknown Dose) PO DAILY SUPPLEMENT (Reported) Desloratadine (Clarinex) 5 MG TABLET 1 TAB PO DAILY ALLERGIES (Reported) Dutasteride (Avodart) 0.5 MG CAPSULE 1 CAP PO DAILY PROSTATE (Reported) Fluticasone Furoate (Veramyst) 10 GM SPRAY.SUSP 2 SPRAY NASB DAILY ALLERGIES (Reported) Gabapentin 300 MG CAPSULE 1 CAP PO 4 TIMES/DAY NERVE PAIN (Reported) Gabapentin 300 MG CAPSULE 300 MG PO BID pain Levothyroxine Sodium 112 MCG TABLET 1 TAB PO DAILY AC THYROID (Reported) Pravastatin Sodium 20 MG TABLET 1 TAB PO DAILY CHOLESTEROL (Reported) Ramipril 10 MG CAPSULE 1 CAP PO BID BP (Reported) Sertraline HCl 100 MG TABLET 0.5 TAB PO DAILY MENTAL HEALTH (Reported) Current Medications: Current Medications Sig/Mary Start time Last Medication Dose Route Stop Time Status Admin Acetaminophen 650 MG Q6P PRN 07/290 DC PO Alprazolam 0.5 MG TID PRN 07/29 2014 AC PO 08/05 2013 Aspirin 81 MG DAILY 07/30 1000 AC PO Aspirin 0 .STK-MED ONE 07/29 1819 DC PO Aspirin 325 MG ONCE ONE 07/29 1815 DC 07/29 PO 07/29 181 1813 Gabapentin 300 MG BID 07/30 1000 AC PO Gabapentin 0 .STK-MED ONE 07/29 2112 DC PO Gabapentin 300 MG 4 TIMES/DAY 07/29 1926 DC 07/29 PO 2112 Heparin Sodium 4,000 UNIT ONCE ONE 07/29 194 DC 07/29 (Porcine) IV 07/29 Heparin Sodium 0 .STK-MED ONE 07/29 1944 DC (Porcine) .ROUTE Heparin Sodium 25,000 UNIT Q24H 07/29 1930 AC 07/29 (Porcine) IV 194 Sodium Chloride 500 ML Hydrocodone Bitart/ 1 TAB Q8P PRN 07/29 1929 DC Acetaminophen PO Insulin Aspart 0 Q4 07/30 0945 UNVr SC Insulin Detemir 12 UNITS BID 07/30 0845 UNVr SC Insulin Human Regular 100 UNIT Q24H 07/30 0000 AC 07/30 Sodium Chloride 100 ML IV 0603 Insulin Human Regular 100 UNIT DAILY 07/29 2014 DC Sodium Chloride 100 ML IV Insulin Human Regular 10 UNITS ONCE ONE 07/29 1800 DC 07/29 IV 07/29 1801 1804 Insulin Human Regular 100 UNIT ONCE ONE 07/29 1800 DC 07/29 Sodium Chloride 100 ML IV 07/29 1801 1854 Levothyroxine Sodium 0.112 MG DAILY AC 07/30 0700 AC 07/30 PO 0707 Lisinopril 40 MG BID 07/30 1000 CAN PO Morphine Sulfate 2 MG Q4P PRN 07/29 1930 AC IV Nitroglycerin 0 .STK-MED ONE 07/29 194 DC SL Nitroglycerin 0.4 MG ONCE ONE 07/29 1930 DC 07/29 SL 07/29 193 1953 Ondansetron HCl 4 MG Q6P PRN 07/29 193 AC IV Ondansetron HCl 0 .STK-MED ONE 07/29 1736 DC .ROUTE Ondansetron HCl 4 MG ONCE ONE 07/29 1730 DC 07/29 IV 07/29 1731 1734 Pantoprazole Sodium 0 .STK-MED ONE 07/29 2112 DC IV Pantoprazole Sodium 40 MG DAILY 07/29 2100 AC 07/29 IV 2113 Potassium Chloride 20 MEQ Q6H 07/30 0745 AC 07/30 Dextrose/Sodium 1,000 ML IV 0851 Chloride Potassium Chloride 20 MEQ CONTINOUS INFUSION 07/30 0700 CAN IV Potassium Chloride 20 MEQ 150 MLS/HR 07/30 0630 DC IV Potassium Chloride 20 MEQ Q6H 07/29 2215 DC 07/30 Sodium Chloride 1,000 ML IV 0000 Pravastatin Sodium 20 MG DAILY 07/29 2010 AC PO Sertraline HCl 50 MG DAILY 07/30 1000 AC PO Sodium Bicarbonate 150 MEQ Q8H 07/30 0430 CAN Dextrose/Water 1,000 ML IV Sodium Bicarbonate 50 MEQ ONCE ONE 07/29 1830 DC 07/29 IV 07/29 1831 1845 Sodium Bicarbonate 150 MEQ CONTINOUS INFUSION 07/29 1830 DC 07/29 Dextrose/Water 1,000 ML IV 07/30 0429 2035 Sodium Chloride 1,000 ML Q5H 07/29 2100 AC IV Sodium Chloride 1,000 ML Q6H 07/29 2045 DC 07/29 IV 2046 Sodium Chloride 1,000 ML BOLUS ONE 07/29 1830 DC 07/29 IV 07/29 1929 1845 Sodium Chloride 1,000 ML BOLUS ONE 07/29 1715 DC / IV 07/29 1814 1734 Sodium Chloride 1,000 ML BOLUS ONE 07/29 1715 DC 07/29 IV 07/29 1814 1734 Review of Systems Review of Systems: No fever. No chills. No rash. No tremor. All other systems were reviewed, and were noted to be negative. 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 partner at home Services at Home: None ETOH Use: denies use Illicit Drug Use: denies illicit drug use Functional Ability ADLs Independent: dressing, eating, toileting, bathing. Ambulation: independent Exam & Diagnostic Data Vital Signs and I&O Vital Signs Date Time Temp Pulse Resp B/P B/P Pulse O2 O2 Flow FiO2 Mean Ox Delivery Rate 07/31 799 98.4 74 22 100/42 96 Room Air 07/30 0000 99.5 92 18 92/53 99 Room Air 07/29 2110 98.7 108 28 120/62 100 Room Air 07/29 1953 96.7 108 28 124/63 99 Room Air 07/29 1908 96.8 108 28 127/64 99 Room Air 07/29 1814 96.8 108 24 122/60 99 Room Air 07/29 1738 98 Room Air 07/29 1704 96.6 110 24 163/69 100 Intake & Output 07/30 1600 07/30 0800 04/ 0000 07/29 1600 07/29 0807/29 0000 Intake Total 1590 2223 Output Total 1000 Balance 590 2223 Intake, IV 1590 2223 Output, Urine 1000 Patient 154 lb Weight Weight Reported by Patient Measurement Method Physical Exam: Gen: The patient is in no acute distress HEENT: Normal nose, ears, and oropharynx. Pupils equal bilaterally. Conjunctiva normal. Neck: Supple with no JVD, no masses, and no thyromegaly Lungs: Clear to auscultation with normal respiratory effort Heart: RRR, S1, S2, 1 out of 6 systolic murmur. No peripheral edema, 2+ pulses in the lower extremities bilaterally Abdomen: Soft, nontender, no masses. No hepatomegaly. No splenomegaly Extremities: No clubbing or cyanosis. Normal muscle strength in the upper and lower extremities Skin: Normal skin turgor with no skin ulcers or lesions noted. Neuro: Cranial nerves intact. Sensation intact Psych: Alert and oriented x 3 with appropriate affect Labs/Praveen Results: Laboratory Tests 07/30 07/30 0645 0600 Chemistry Troponin I (<0.11 ng/ml) 16.00 *H Urines Urine Color (YEL,AMB,STR) YEL Urine Clarity (CLEAR) CLEAR Urine pH (5.0 - 8.0) 6.0 Ur Specific [place] (1.001 - 1.035) 1.020 Urine Protein (NEG,<30 MG/DL) NEG Urine Ketones (NEG) 15 H Urine Nitrite (NEG) NEG Urine Bilirubin (NEG) NEG Urine Urobilinogen (0.1 - 1.0 EU/dl) 0.2 Ur Leukocyte Esterase (NEG) NEG Ur Microscopic EXAM NOT REQUIRED Urine Hemoglobin (NEG) NEG Urine Glucose (N MG/DL) >=1000 H 07/30 07/30 07/30 0600 0500 0210 Chemistry Sodium (137 - 145 mmol/L) 140 Potassium (3.5 - 5.1 mmol/L) 4.4 Chloride (98 - 107 mmol/L) 110 H Carbon Dioxide (22 - 30 mmol/L) 20 L Anion Gap (5 - 16) 10 BUN (9 - 20 mg/dL) 49 H Creatinine (0.7 - 1.2 mg/dL) 1.9 H Estimated GFR (>60 ml/min) 37 L Glucose (65 - 99 mg/dL) 246 H Hemoglobin A1c Pending Calcium (8.4 - 10.2 mg/dL) 8.2 L Phosphorus (2.5 - 4.5 mg/dL) 3.3 Magnesium (1.6 - 2.3 mg/dL) 1.9 Total Bilirubin (0.2 - 1.3 mg/dL) 0.4 AST (17 - 59 U/L) 55 ALT (21 - 72 U/L) 32 Albumin (3.5 - 5.0 g/dL) 3.0 L Coagulation APTT (25 - 37 SEC) 111 *H Hematology CBC w Diff MAN DIFF ORDERED WBC (4.8 - 10.8 /CUMM) 22.8 H RBC (4.70 - 6.10 /CUMM) 3.50 L Hgb (14.0 - 18.0 G/DL) 10.7 L Hct (42 - 52 %) 31.3 L MCV (80.0 - 94.0 FL) 89.6 MCH (27.0 - 31.0 PG) 30.7 MCHC (33.0 - 37.0 G/DL) 34.3 RDW (11.5 - 14.5 %) 14.1 Plt Count (130 - 400 /CUMM) 195 MPV (7.4 - 10.4 FL) 9.6 Gran % (42.2 - 75.2 %) 87.1 H Lymphocytes % (20.5 - 51.1 %) 6.2 L Monocytes % (1.7 - 9.3 %) 6.7 Eosinophils % (0 - 5 %) 0 Basophils % (0.0 - 2.0 %) 0 Absolute Granulocytes (1.4 - 6.5 /CUMM) 19.8 H Segmented Neutrophils (42.2 - 75.2 %) 86 H Band Neutrophils (0.0 - 5.0 %) 1 Absolute Lymphocytes (1.2 - 3.4 /CUMM) 1.4 Lymphocytes (20.5 - 51.1 %) 10 L Monocytes (1.7 - 9.3 %) 2 Absolute Monocytes (0.10 - 0.60 /CUMM) 1.5 H Absolute Eosinophils (0.0 - 0.7 /CUMM) 0 Absolute Basophils (0.0 - 0.2 /CUMM) 0 Metamyelocytes (0.0 - 1.0 %) 1 Platelet Estimate (ADEQUATE) ADEQUATE Polychromasia 1+ Ovalocytes FEW Other Body Source Fld Total RBCs Counted (%) 100 07/29 07/29 07/29 07/29 07/29 2315 2150 2129 2019 2019 Chemistry Sodium (137 - 145 mmol/L) 142 139 Cancelled Potassium (3.5 - 5.1 mmol/L) 4.7 4.6 Cancelled Chloride (98 - 107 mmol/L) 111 H 109 H Cancelled Carbon Dioxide (22 - 30 mmol/L) 15 L 12 L Cancelled Anion Gap (5 - 16) 16 18 H Cancelled BUN (9 - 20 mg/dL) 48 H 48 H Cancelled Creatinine (0.7 - 1.2 mg/dL) 2.0 H 2.0 H Cancelled Estimated GFR (>60 ml/min) 35 L 35 L BUN/Creatinine Ratio (7 - 25 %) 24.0 Cancelled Glucose (65 - 99 mg/dL) 512 *H Lactic Acid (0.7 - 2.1 mmol/L) 1.6 2.5 H Calcium (8.4 - 10.2 mg/dL) 7.8 L Phosphorus (2.5 - 4.5 mg/dL) 3.9 Magnesium (1.6 - 2.3 mg/dL) 1.9 Total Bilirubin (0.2 - 1.3 mg/dL) 0.5 AST (17 - 59 U/L) 25 ALT (21 - 72 U/L) 25 Troponin I (<0.11 ng/ml) 3.98 *H 1.02 *H Albumin (3.5 - 5.0 g/dL) 3.0 L 07/29 Blood Gas Bicarbonate Actual (22 - 26 MEQ/L) 11 L Mixed VBG pH (7.31 - 7.41 PH) 7.21 L Mixed VBG pCO2 (41 - 51 TORR) 28 L Mixed VBG O2 Saturation (35 - 45 TORR) 51 H Carboxyhemoglobin (1.5 - 5.0 %) 0.2 L O2 Concentration % R/A Chemistry Sodium (137 - 145 mmol/L) 138 135 L Potassium (3.5 - 5.1 mmol/L) 4.6 5.9 H Chloride (98 - 107 mmol/L) 107 101 Carbon Dioxide (22 - 30 mmol/L) 12 L 9 *L Anion Gap (5 - 16) 20 H 25 H BUN (9 - 20 mg/dL) 47 H 48 H Creatinine (0.7 - 1.2 mg/dL) 2.1 H 2.3 H Estimated GFR (>60 ml/min) 33 L 29 L BUN/Creatinine Ratio (7 - 25 %) 20.9 Glucose (65 - 99 mg/dL) 555 *H 617 *H Insulin Level (3.0 - 25.0 mIU/mL) 0.6 L Serum Osmolality (285 - 295 MOSM/KG) 333 H Lactic Acid (0.7 - 2.1 mmol/L) 4.0 H Calcium (8.4 - 10.2 mg/dL) 8.0 L 8.8 Phosphorus (2.5 - 4.5 mg/dL) 4.8 H Magnesium (1.6 - 2.3 mg/dL) 1.9 2.0 Total Bilirubin (0.2 - 1.3 mg/dL) 0.5 0.6 AST (17 - 59 U/L) 22 20 ALT (21 - 72 U/L) 28 26 Alkaline Phosphatase (< 127 U/L) 110 Troponin I (<0.11 ng/ml) 0.32 *H Total Protein (6.3 - 8.2 g/dL) 6.2 L Albumin (3.5 - 5.0 g/dL) 3.3 L 3.7 Globulin (1.9 - 4.2 gm/dL) 2.5 Albumin/Globulin Ratio (1.1 - 2.2 %) 1.5 TSH (0.270 - 4.200 uIU/mL) 2.260 Free T4 (0.64 - 1.79 ng/dL) 2.42 H Cortisol PM Sample (1.7 - 14.1) 78.4 H Hematology CBC w Diff MAN DIFF ORDERED WBC (4.8 - 10.8 /CUMM) 21.9 H RBC (4.70 - 6.10 /CUMM) 3.88 L Hgb (14.0 - 18.0 G/DL) 11.7 L Hct (42 - 52 %) 35.1 L MCV (80.0 - 94.0 FL) 90.4 MCH (27.0 - 31.0 PG) 30.1 MCHC (33.0 - 37.0 G/DL) 33.3 RDW (11.5 - 14.5 %) 14.7 H Plt Count (130 - 400 /CUMM) 190 MPV (7.4 - 10.4 FL) 10.4 Gran % (42.2 - 75.2 %) 91.3 H Lymphocytes % (20.5 - 51.1 %) 5.6 L Monocytes % (1.7 - 9.3 %) 2.8 Eosinophils % (0 - 5 %) 0.1 Basophils % (0.0 - 2.0 %) 0.2 Absolute Granulocytes (1.4 - 6.5 /CUMM) 19.9 H Segmented Neutrophils (42.2 - 75.2 %) 84 H Band Neutrophils (0.0 - 5.0 %) 2 Absolute Lymphocytes (1.2 - 3.4 /CUMM) 1.2 Lymphocytes (20.5 - 51.1 %) 10 L Monocytes (1.7 - 9.3 %) 4 Absolute Monocytes (0.10 - 0.60 /CUMM) 0.6 Absolute Eosinophils (0.0 - 0.7 /CUMM) 0 Absolute Basophils (0.0 - 0.2 /CUMM) 0 Platelet Estimate (ADEQUATE) ADEQUATE Normocytic RBCs VERIFIED Miscellaneous Phlebotomy Draw Site VENOUS Toxicology Acetone Level (NEGATIVE) POSITIVE AT 1:8 DIL 07/29 1722 Chemistry TSH Cancelled Free T4 Cancelled Diagnostic Data EKG Results EKG tracing is independently reviewed, and reveals sinus tachycardia at 108, low voltage, minor nonspecific ST abnormalilty CXR Results No acute pulmonary pathology demonstrated. No significant interval change compared to prior chest radiography. Other Results CT scan of the abdomen and pelvis: 1. A couple apprc-iv-sojcnnsp length segments of questionable mural thickening of the colon involving the cecum/ascending colon and distal transverse colon. This may at least in part be due to colonic decompression; however, subtle colitis is not excluded. 2. Nonobstructive bowel gas pattern. 3. No acute thoracic pathology. 4. Hepatic steatosis. 5. Tiny punctate nonobstructing calculus in the upper pole of the right kidney. Other scattered renal vascular calcifications. 6. Additional findings as described above. Assessment/Plan Assessment/Plan 56-year-old male with type 1 diabetes presenting with DKA secondary to probable insulin pump malfunctioning. He is noted to have positive troponin suggestive of possible non-ST elevation myocardial infarction. Recommendations: * Management of DKA as per endocrinology * Continue aspirin * IV heparin per protocol * Continue to check serial troponin * Echocardiogram * N.p.o. after midnight for possible cardiac catheterization * Repeat EKG in the morning Consult Acknowledgment - Thank you for your consult request.
[2017-07-30] VITALS: BP 92/53
[2017-07-30 02:49] LABS: PTT 111 SEC (25-37)
[2017-07-30 06:29] LABS: ABSOLUTE BASOPHIL COUNT 0 /CUMM (0.0-0.2); ABSOLUTE EOSINOPHIL COUNT 0 /CUMM (0.0-0.7); ABSOLUTE GRANULOCYTE CT 19.8 /CUMM (1.4-6.5); ABSOLUTE LYMPH COUNT 1.4 /CUMM (1.2-3.4); ABSOLUTE MONOCYTE COUNT 1.5 /CUMM (0.10-0.60); BASOPHIL % 0 % (0.0-2.0); EOSINOPHIL % 0 % (0-5); GRANULOCYTE % 87.1 % (42.2-75.2); HEMATOCRIT 31.3 % (42-52); MEAN CORPUSCULAR HGB 30.7 PG (27.0-31.0); MEAN CORPUSCULAR HGB CONC 34.3 G/DL (33.0-37.0); MEAN CORPUSCULAR VOLUME 89.6 FL (80.0-94.0); MEAN PLATELET VOLUME 9.6 FL (7.4-10.4); PLATELET COUNT 195 /CUMM (130-400); RBC DISTRIBUTION WIDTH 14.1 % (11.5-14.5); WHITE BLOOD CELL COUNT 22.8 /CUMM (4.8-10.8)
--- NOTE | 2017-07-30 07:17 | Cons- Endocrinology ---
General Information and HPI Consulting Request Date of Consult: 07/30/17 Requested By: medical team Reason for Consult: Diabetic ketoacidosis Source of Information: patient, old records ( ) Exam Limitations: no limitations History of Present Illness: This 57-year-old male with type 1 diabetes treated with an insulin pump came to the emergency room on Sunday night for 10/2017. At that time he was not feeling well. He states he has was weak and has had some nausea and vomiting. The labs revealed that he was not in ketoacidosis. He was complaining however that he could not get his sugar down however and sugar was rising even though he was taking boluses through the insulin pump. He was sent home after receiving some subcu insulin in the ER. During the next day 07/29/2017 he became worse. He developed more severe nausea or vomiting and weakness with increased shortness of breath. His body hurt all over. He came back to the emergency room and was found to be in ketoacidosis. During the night the patient has been hydrated with normal saline and has had repletion of his sodium and potassium. His sugar this morning is down to the 250 range and his IV has been switched to D5 half-normal saline with 20 mEq of KCl. The patient 6 AM blood work has now returned. The patient's creatinine is 1.9 sodium 140 potassium 4.4. Carbon dioxide is 20 and anion gap is 10. In speaking with the patient he feels much improved. He denies chest pain at this time. He did develop an elevated troponin and was placed on IV heparin. Cardiology has been consulted. Allergies/Medications Allergies: Coded Allergies: No Known Allergies (10/04/15) Home Med List: Alprazolam 0.5 MG TABLET 1 TAB PO TID PRN ANXIETY (Reported) Aspirin (Ecotrin*) 81 MG TABLET.DR 1 TAB PO DAILY HEART/BLOOD (Reported) Cholecalciferol (Vitamin D3) (Vitamin D3) (Unknown Strength) CAPSULE (Unknown Dose) PO DAILY SUPPLEMENT (Reported) Desloratadine (Clarinex) 5 MG TABLET 1 TAB PO DAILY ALLERGIES (Reported) Dutasteride (Avodart) 0.5 MG CAPSULE 1 CAP PO DAILY PROSTATE (Reported) Fluticasone Furoate (Veramyst) 10 GM SPRAY.SUSP 2 SPRAY NASB DAILY ALLERGIES (Reported) Gabapentin 300 MG CAPSULE 1 CAP PO 4 TIMES/DAY NERVE PAIN (Reported) Levothyroxine Sodium 112 MCG TABLET 1 TAB PO DAILY AC THYROID (Reported) Pravastatin Sodium 20 MG TABLET 1 TAB PO DAILY CHOLESTEROL (Reported) Ramipril 10 MG CAPSULE 1 CAP PO BID BP (Reported) Sertraline HCl 100 MG TABLET 0.5 TAB PO DAILY MENTAL HEALTH (Reported) Review of Systems Review of Systems Constitutional: Reports: chills. Denies: fever. Cardiovascular: Denies: chest pain. Respiratory: Reports: short of breath. GI: Denies: nausea, vomiting. Genitourinary: Reports: frequency. Skin: Denies: dryness. 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 partner at home Services at Home: None Smoking Status: Former Smoker ETOH Use: denies use Illicit Drug Use: denies illicit drug use Functional Ability ADLs Independent: dressing, eating, toileting, bathing. Ambulation: independent IADLs Independent: shopping, housework, finances, food prep, telephone, transportation , medication admin. Exam & Diagnostic Data Last 24 Hrs of Vital Signs/I&O Vital Signs Date Time Temp Pulse Resp B/P B/P Pulse O2 O2 Flow FiO2 Mean Ox Delivery Rate 07/30 0000 99.5 92 18 92/53 99 Room Air 07/290 98.7 108 28 120/62 100 Room Air 07/29 1953 96.7 108 28 124/63 99 Room Air 07/29 1908 96.8 108 28 127/64 99 Room Air 07/29 1814 96.8 108 24 122/60 99 Room Air 07/29 1738 98 Room Air 07/29 1704 96.6 110 24 163/69 100 Intake & Output 07/30 0800 07/30 0000 07/29 1600 Intake Total 2223 Output Total Balance 2223 Intake, IV 2223 Patient 154 lb Weight Weight Reported by Patient Measurement Method Assessment/Plan Assessment/Plan This patient has a history of type 1 diabetes mellitus and hypothyroidism. He developed diabetic ketoacidosis. The patient is much improved following treatment overnight with an insulin drip and repletion of his sodium and potassium and fluid deficit. At noontime today we can switch him over to a diet. I would begin diabetic diet at noon. We can begin Levemir 12 units twice a day starting at 10 AM today. We should place him on sliding scale NovoLog starting before lunch. Sliding scale NovoLog before meals should be 80-150 give 3 units NovoLog, 151-200 give 4 units NovoLog, 201-250 give 5 units NovoLog, 251-300 give 6 units NovoLog, 301-350 give 7 units NovoLog, 3 5104 100 give 8 units NovoLog. A separate sliding scale bedtime NovoLog coverage should be written. Bedtime NovoLog coverage should be less than 250 give no insulin, 251-300 give 2 units NovoLog, 301-350 give 3 units NovoLog, 351-400 give 4 units NovoLog. After the first dose of Levemir and 1 hour after the first dose of NovoLog the insulin drip can be stopped. His fluids at that time can be decreased to 50 cc/ h. Should restart the patient's thyroid hormone replacement therapy. Cardiology consult to be done. Consult Acknowledgment - Thank you for your consult request.
[2017-07-30 08:00] VITALS: BP 100/42
--- NOTE | 2017-07-30 08:00 | Cons- CRCU ---
General Information and HPI Consulting Request Date of Consult: 07/30/17 Requested By: Bruce Summers MD Reason for Consult: DKA NSTEMI Source of Information: patient, old records Exam Limitations: no limitations History of Present Illness: Patient is a 56-year-old male with past medical history of hypothyroidism, hypercholesterolemia, restless leg syndrome, anxiety, depression, type 1 diabetes on an insulin pump with diabetic neuropathy, diabetic nephropathy with chronic kidney disease stage III, diabetic retinopathy with history of diabetic ketoacidosis in 2016 presenting this admission with chief complaint of nausea, vomiting and chest pain over the past 2 days. Patient reports that he came to the ED on 07/28 due to nausea and vomiting and was found to have elevated blood glucose at that time. Patient's sugar was 396 with no evidence of DKA. Patient received antiemetics and insulin and his symptoms improved and was discharged from the ED. Patient return to the ED the following day with similar complaints of nausea and vomiting however states that he also started having chills, weakness, body aches including chest pain. Patient's fingerstick was greater than 500, with positive acetone, hyperosmolar high anion gap metabolic acidosis. Patient was also found to have elevated troponin of 0.[address] segment changes. Patient was admitted to the ICU and was started on IV insulin and IV heparin drip and IV fluids. Patient's troponin continued to rise overnight. Troponin this morning at 6 AM is 16 up from 3.98. Patient EKG shows T-wave flattening in V5 and V6. Patient currently denies any active chest pain, shortness of breath, nausea/vomiting, abdominal pain, diaphoresis. Patient's sugars are improving today on IV insulin drip and D5 half-normal saline with KCl. Allergies/Medications Allergies: Coded Allergies: No Known Allergies (10/04/15) Home Med List: Alprazolam 0.5 MG TABLET 1 TAB PO TID PRN ANXIETY (Reported) Aspirin (Ecotrin*) 81 MG TABLET.DR 1 TAB PO DAILY HEART/BLOOD (Reported) Cholecalciferol (Vitamin D3) (Vitamin D3) (Unknown Strength) CAPSULE (Unknown Dose) PO DAILY SUPPLEMENT (Reported) Desloratadine (Clarinex) 5 MG TABLET 1 TAB PO DAILY ALLERGIES (Reported) Dutasteride (Avodart) 0.5 MG CAPSULE 1 CAP PO DAILY PROSTATE (Reported) Gabapentin 300 MG CAPSULE 1 CAP PO 4 TIMES/DAY NERVE PAIN (Reported) Gabapentin 300 MG CAPSULE 300 MG PO BID pain Heparin (Heparin-1/2NS 25,000 Units/500) 25,000 UNIT/500 ML (50 UNIT/ML) IV.SOLN 1 BAG IV ONCE AL Insulin Aspart (Novolog) 100 UNIT/ML VIAL 0 SC Q4 DM TYPE 1 Blood Insulin Sugar Units <150 0 151-200 3 201-250 4 251-300 5 301-350 6 351-400 7 >400 8 Call Doctor Insulin Detemir (Levemir) 100 UNIT/ML VIAL 7 UNIT SC BID DM TYPE 1 Levothyroxine Sodium 112 MCG TABLET 1 TAB PO DAILY AC THYROID (Reported) Ondansetron HCl/Pf (Ondansetron HCl 4 MG/2 Ml Vial) 4 MG/2 ML VIAL 4 MG IV Q6P PRN NAUSEA/VOMITING Pantoprazole Sodium 40 MG VIAL 40 MG IV DAILY GI ppt Pravastatin Sodium 20 MG TABLET 1 TAB PO DAILY CHOLESTEROL (Reported) Ramipril 10 MG CAPSULE 1 CAP PO BID BP (Reported) Sertraline HCl 100 MG TABLET 0.5 TAB PO DAILY MENTAL HEALTH (Reported) [Veramy] (Reported) Review of Systems Review of Systems Constitutional: Reports: see HPI, chills, weakness. Cardiovascular: Reports: see HPI, chest pain. Respiratory: Reports: no symptoms. GI: Reports: see HPI, nausea, vomiting. Genitourinary: Reports: no symptoms. Musculoskeletal: Reports: back pain. Neurological/Psychological: Reports: numbness, tingling. Hematologic/Endocrine: Reports: no symptoms. Immunologic/Allergic: Reports: no symptoms. 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 partner at home Services at Home: None Smoking Status: Former Smoker ETOH Use: denies use Illicit Drug Use: denies illicit drug use Functional Ability ADLs Independent: dressing, eating, toileting, bathing. Ambulation: independent IADLs Independent: shopping, housework, finances, food prep, telephone, transportation , medication admin. Exam & Diagnostic Data Last 24 Hrs of Vital Signs/I&O Vital Signs Date Time Temp Pulse Resp B/P B/P Pulse O2 O2 Flow FiO2 Mean Ox Delivery Rate 07/31 799 98.4 74 22 100/42 96 Room Air 04/ 0000 99.5 92 18 92/53 99 Room Air 07/29 2110 98.7 108 28 120/62 100 Room Air 07/29 1953 96.7 108 28 124/63 99 Room Air 07/29 1908 96.8 108 28 127/64 99 Room Air 07/29 1814 96.8 108 24 122/60 99 Room Air 07/29 1738 98 Room Air 07/29 1704 96.6 110 24 163/69 100 Intake & Output 07/30 1600 07/30 0800 04/ 0000 Intake Total 1590 2223 Output Total 1000 Balance 590 2223 Intake, IV 1590 2223 Output, Urine 1000 Patient 154 lb Weight Weight Reported by Patient Measurement Method Physical Exam General Appearance: well developed/nourished, alert, awake, comfortable Head: atraumatic, normal appearance Respiratory: normal breath sounds, chest non-tender, no respiratory distress, quiet respiration Cardiovascular: regular rate/rhythm Peripheral Pulses: 2+ carotid (R), 2+ carotid (L), 2+ radial (R), 2+ radial (L), 2+ dorsalis pedis (R), 2+ dorsalis pedis (L) Gastrointestinal: normal bowel sounds, soft, non-tender Extremities: no edema Neurologic/Psych: awake, alert, oriented x 3, director quality assurance II-XII nml as tested Cranial Nerves: normal hearing, normal speech, PERRL Last 48 Hrs of Labs/Praveen: Laboratory Tests 07/30/17 1150: Sodium Pending, Potassium Pending, Chloride Pending, Carbon Dioxide Pending, Anion Gap Pending, BUN Pending, Creatinine Pending, Glucose Pending, Calcium Pending, Phosphorus Pending, Magnesium Pending, Total Bilirubin Pending, AST Pending, ALT Pending, Troponin I Pending, Albumin Pending, APTT Pending 07/30/17 0645: Urine Color YEL, Urine Clarity CLEAR, Urine pH 6.0, Ur Specific [place] 1.020, Urine Protein NEG, Urine Ketones 15 H, Urine Nitrite NEG, Urine Bilirubin NEG, Urine Urobilinogen 0.2, Ur Leukocyte Esterase NEG, Ur Microscopic EXAM NOT REQUIRED, Urine Hemoglobin NEG, Urine Glucose >=1000 H 07/30/17 0600: Troponin I 16.00 *H 07/30/17 0600: Anion Gap 10, Estimated GFR 37 L, Glucose 246 H, Calcium 8.2 L, Phosphorus 3.3, Magnesium 1.9, Total Bilirubin 0.4, AST 55, ALT 32, Albumin 3.0 L, CBC w Diff MAN DIFF ORDERED, RBC 3.50 L, MCV 89.6, MCH 30.7, MCHC 34.3, RDW 14.1, MPV 9.6, Gran % 87.1 H, Lymphocytes % 6.2 L, Monocytes % 6.7, Eosinophils % 0, Basophils % 0, Absolute Granulocytes 19.8 H, Segmented Neutrophils 86 H, Band Neutrophils 1, Absolute Lymphocytes 1.4, Lymphocytes 10 L, Monocytes 2, Absolute Monocytes 1.5 H, Absolute Eosinophils 0, Absolute Basophils 0, Metamyelocytes 1, Platelet Estimate ADEQUATE, Polychromasia 1+, Ovalocytes FEW, Fld Total RBCs Counted 100 07/30/17 0500: Hemoglobin A1c 7.9 H 07/30/17 0210: APTT 111 *H 07/29/17 2315: Anion Gap 16, Estimated GFR 35 L, BUN/Creatinine Ratio 24.0, Lactic Acid 1.6, Troponin I 3.98 *H 07/29/17 2150: Anion Gap 18 H, Estimated GFR 35 L, Glucose 512 *H, Calcium 7.8 L, Phosphorus 3.9, Magnesium 1.9, Total Bilirubin 0.5, AST 25, ALT 25, Albumin 3.0 L 07/29/172129: Sodium Cancelled, Potassium Cancelled, Chloride Cancelled, Carbon Dioxide Cancelled, Anion Gap Cancelled, BUN Cancelled, Creatinine Cancelled, BUN/ Creatinine Ratio Cancelled 07/29/172019: Troponin I 1.02 *H 07/29/172019: Lactic Acid 2.5 H 07/29/172019: Bicarbonate Actual 11 L, Mixed VBG pH 7.21 L, Mixed VBG pCO2 28 L, Mixed VBG O2 Saturation 51 H, Carboxyhemoglobin 0.2 L, O2 Concentration % R/A, Anion Gap 20 H, Estimated GFR 33 L, Glucose 555 *H, Calcium 8.0 L, Phosphorus 4.8 H, Magnesium 1.9, Total Bilirubin 0.5, AST 22, ALT 28, Albumin 3.3 L, Phlebotomy Draw Site VENOUS 07/29/17 1726: Anion Gap 25 H, Estimated GFR 29 L, BUN/Creatinine Ratio 20.9, Glucose 617 *H, Insulin Level 0.6 L, Serum Osmolality 333 H, Lactic Acid 4.0 H, Calcium 8.8, Magnesium 2.0, Total Bilirubin 0.6, AST 20, ALT 26, Alkaline Phosphatase 110, Troponin I 0.32 *H, Total Protein 6.2 L, Albumin 3.7, Globulin 2.5, Albumin/ Globulin Ratio 1.5, TSH 2.260, Free T4 2.42 H, Cortisol PM Sample 78.4 H, CBC w Diff MAN DIFF ORDERED, RBC 3.88 L, MCV 90.4, MCH 30.1, MCHC 33.3, RDW 14.7 H , MPV 10.4, Gran % 91.3 H, Lymphocytes % 5.6 L, Monocytes % 2.8, Eosinophils % 0.1, Basophils % 0.2, Absolute Granulocytes 19.9 H, Segmented Neutrophils 84 H , Band Neutrophils 2, Absolute Lymphocytes 1.2, Lymphocytes 10 L, Monocytes 4, Absolute Monocytes 0.6, Absolute Eosinophils 0, Absolute Basophils 0, Platelet Estimate ADEQUATE, Normocytic RBCs VERIFIED, Acetone Level POSITIVE AT 1:8 DIL 07/29/17 1722: TSH Cancelled, Free T4 Cancelled Microbiology 07/29 1728 NASOPHARYN: Influenza Virus A & B Rapid Smear - COMP Assessment/Plan CRCU Impression/Plan: Patient is a 56-year-old male with past medical history of hypothyroidism, hypercholesterolemia, restless leg syndrome, anxiety, depression, type 1 diabetes on an insulin pump with diabetic neuropathy, diabetic nephropathy with chronic kidney disease stage III, diabetic retinopathy with history of diabetic ketoacidosis in 2016 presenting this admission with chief complaint of nausea, vomiting and chest pain over the past 2 days. Patient is admitted to the ICU for management of the following: Respiratory: Saturating well on room air. Infectious: Leukocytosis: Rule out infection in setting of DKA No signs of active infection at this time. Patient remains afebrile off antibiotics. - continue to watch off antibiotics - reculture if patient spikes a fever - follow up blood culture - follow up urine cultures - monitor vitals closely Cadiac: NSTEMI Patient presented with chest pain with elevated troponins with no significant ST elevations. EKG changes in the 5 and V6 showed T-wave flattening. Patient received nitroglycerin with resolution of his chest pain. Patient was given aspirin and started on IV heparin drip. Patient is currently asymptomatic. Troponins elevated today to 16. We spoke to cardiology this morning and patient will be transferred to [facility] for cardiac cath. - Continue IV heparin - Continue to monitor troponin until it peaks - Transfer to [facility] for cardiac cath - Continue Aspirin and atorvastatin - NPO for stress test - Nitro and morphine for chest pain - Hold MATT inhibitor - ECHO pending Hypercholesterolemia: - Continue statin Heme: Iron deficiency anemia - continue to monitor H/H Metabolic: Diabetic Ketoacidosis in setting of type 1 diabetes - likely 2/2 insulin pump malfunction/failure. Insulin pump held. Currently on an IV insulin drip and D5 1 /2 NS with KCl. Patient is currently asymptomatic. Patient's sugars are improving. Anion gap and acidosis has resolved. - weaned off IV insulin drip - transition to levemir - continue accuchecks every 1/2 hour to every 1 hour - continue novolog q4h - continue D5 1/2 NS - continue to monitor K+ - patient to remain NPO for cardiac cath - endocrinology on board Hypothyroidism - continue levothyroxine at home dose Ailmentary: NPO with D5 1/2 NS Continue to monitor electrolytes - repeat BEP this afternoon pending Nephrology: KIRAN on CKD Creatinine is improving. Patient's KIRAN likely prerenal secondary to dka and osmotic diuresis. However patient also appears to have obstructive uropathy with enlarged prostate. Patient today required straight cath with 1L of urine emptied this morning. - rose placed - continue to monitor strict I/O - continue IV fluid hydration - continue to monitor creatinine - hold MATT inhibitor - avoid nephrotoxic agents Neurology: Diabetic neuropathy - decrease gabapentin to BID GI PPx: Protonix DVT PPx: ALPS, on IV heparin Diet: NPO for cardiac cath Code: Full code Consult Acknowledgment - Thank you for your consult request.
--- NOTE | 2017-07-30 08:52 | PN- CRCU ---
Subjective HPI/Critical Care Issues: No chest pain Doing ok Fatigue Sleeping Had to be st cathed Imaging nil acute Anion gap has closed Sig troponin elevation with no sig st-t changes Objective Current Medications: Current Medications Sig/Mary Start time Last Medication Dose Route Stop Time Status Admin Acetaminophen 650 MG Q6P PRN 07/29 1929 AC PO Alprazolam 0.5 MG TID PRN 07/29 2014 AC PO 08/05 2013 Aspirin 0 .STK-MED ONE 07/29 1818 DC PO Aspirin 325 MG ONCE ONE 07/29 1814 DC 07/29 PO 07/30 1815 181 Gabapentin 0 .STK-MED ONE 07/29 2112 DC PO Gabapentin 300 MG 4 TIMES/DAY 07/29 1925 AC 07/29 PO 2112 Heparin Sodium 4,000 UNIT ONCE ONE 07/29 1944 DC 07/29 (Porcine) IV 07/29 Heparin Sodium 0 .STK-MED ONE 07/29 1944 DC (Porcine) .ROUTE Heparin Sodium 25,000 UNIT Q24H 07/29 1929 AC 07/29 (Porcine) IV 1948 Sodium Chloride 500 ML Hydrocodone Bitart/ 1 TAB Q8P PRN 07/29 1929 AC Acetaminophen PO Insulin Human Regular 100 UNIT Q24H 07/30 0000 AC 07/30 Sodium Chloride 100 ML IV 0603 Insulin Human Regular 100 UNIT DAILY 07/29 2014 DC Sodium Chloride 100 ML IV Insulin Human Regular 10 UNITS ONCE ONE 07/29 1800 DC 07/29 IV 07/29 1801 1804 Insulin Human Regular 100 UNIT ONCE ONE 07/29 1800 DC 07/29 Sodium Chloride 100 ML IV 07/29 1801 1854 Levothyroxine Sodium 0.112 MG DAILY AC 07/30 0700 AC 07/30 PO 0707 Lisinopril 40 MG BID 07/30 1000 CAN PO Morphine Sulfate 2 MG Q4P PRN 07/29 193 AC IV Nitroglycerin 0 .STK-MED ONE 07/29 194 DC SL Nitroglycerin 0.4 MG ONCE ONE 07/29 1929 DC 07/29 SL 07/29 1930 195 Ondansetron HCl 4 MG Q6P PRN 07/29 1929 AC IV Ondansetron HCl 0 .STK-MED ONE 07/29 173 DC .ROUTE Ondansetron HCl 4 MG ONCE ONE 07/29 173 DC 07/29 IV 07/29 1731 1734 Pantoprazole Sodium 0 .STK-MED ONE 07/293 DC IV Pantoprazole Sodium 40 MG DAILY 07/29 2100 AC 07/29 IV 2113 Potassium Chloride 20 MEQ Q6H 07/30 0745 AC Dextrose/Sodium 1,000 ML IV Chloride Potassium Chloride 20 MEQ CONTINOUS INFUSION 07/30 699 CAN IV Potassium Chloride 20 MEQ 150 MLS/HR 07/30 0630 DC IV Potassium Chloride 20 MEQ Q6H 07/29 2215 DC 07/30 Sodium Chloride 1,000 ML IV 0000 Pravastatin Sodium 20 MG DAILY 07/29 2010 AC PO Sertraline HCl 50 MG DAILY 07/30 1000 AC PO Sodium Bicarbonate 150 MEQ Q8H 07/30 0430 CAN Dextrose/Water 1,000 ML IV Sodium Bicarbonate 50 MEQ ONCE ONE 07/29 1830 DC 07/29 IV 07/29 1831 1845 Sodium Bicarbonate 150 MEQ CONTINOUS INFUSION 07/29 1830 DC 07/29 Dextrose/Water 1,000 ML IV 07/30 0429 2035 Sodium Chloride 1,000 ML Q5H 07/29 2100 AC IV Sodium Chloride 1,000 ML Q6H 07/29 2045 DC 07/29 IV 2046 Sodium Chloride 1,000 ML BOLUS ONE 07/29 1830 DC 07/29 IV 07/29 1929 1845 Sodium Chloride 1,000 ML BOLUS ONE 07/29 1715 DC / IV 07/29 1814 1734 Sodium Chloride 1,000 ML BOLUS ONE 07/29 1715 DC 07/29 IV 07/29 1814 1734 Vital Signs & I&O Last 24 Hrs of Vitals and I&O: Vital Signs Date Time Temp Pulse Resp B/P B/P Pulse O2 O2 Flow FiO2 Mean Ox Delivery Rate 07/31 799 98.4 74 22 100/42 96 Room Air 07/30 0000 99.5 92 18 92/53 99 Room Air 07/29 2109 98.7 108 28 120/62 100 Room Air 07/29 1952 96.7 108 28 124/63 99 Room Air 07/29 1908 96.8 108 28 127/64 99 Room Air 07/29 1814 96.8 108 24 122/60 99 Room Air 07/29 1738 98 Room Air 07/29 1704 96.6 110 24 163/69 100 Intake & Output 07/30 1600 07/30 0800 07/30 0000 Intake Total 1590 2223 Output Total 1000 Balance 590 2223 Intake, IV 1590 2223 Output, Urine 1000 Patient 154 lb Weight Weight Reported by Patient Measurement Method Impression/Plan Impression/Plan Impression/Plan: JUAN J EOMI No jvd Chest clear No sig tenderness No sig edema Mr. Lawton is a 56 y/o Male with history of type 1 diabetes mellitus on insulin pump with complications of diabetic neuropathy, diabetic nephropathy, also has hypothyroidism and dyslipidemia restless leg syndrome presented to the ED with complaints of nausea vomiting diarrhea. ISSues DKA due to gastroenteritis and prob insulin pump malfunctioning - Now has improved Sig Type 1 DM with nephropathy, and other end organ involvement * Sig elevated troponin with nonspecific ST-T changes with previous chest pain, now pain free, on room air and hemodynamically stable, with stable HR, and maintened BP * Leukocytosis with no obvious sepsis * Prob urinary retention * CKD with KIRAN stage 3 * Hypothyroid on adequate supp REC Cont insulin per endo Reduce ivf till he can take PO Replace Potassium judiciously Check his bmp and potassium again this afternoon IV heparin Low dose betablocker 12.5 bid IF BP permits low dose ACI Watch Renal function Resume levoxyl ASA PO ppi Reduce Gabapentin to bid Dc all narcotics except morphine If unable to void rose for now Critically ill tts 36 mins
[2017-07-30] MEDS ORDERED: GABAPENTIN300 M2 PO (09:45)
[2017-07-30] MEDS ORDERED: HEPARIN-1/25000 UNI1 IV (09:48)
[2017-07-30] MEDS ORDERED: LEVEMIR100 UNIT/1 SC ×2 (09:48→11:46)
--- NOTE | 2017-07-30 09:52 | Discharge Summary ---
Visit Information Visit Dates Admission Date: 07/29/17 Discharge Date: 07/30/2017 Hospital Course Course Attending Physician: Brittani LOPEZ,Joaquin Waddell Primary Care Physician: Lester LOPEZ,Ashwin Ríos Consulting Request: 1 Consulting Specialty: Cardiology Consulting Request: 2 Consulting Specialty: Endocrinology Hospital Course: This is a 56 year old male with PMH of hypothyroidism, hypercholestrolemia, restless leg syndrome, anxiety, depression, diabetes mellitus type 1 currently on insulin pump, diabetic neuropathy, chronic kidney disease stage 3, BPH. He Represented to the emergency department with a chief complaint of nausea, vomiting, diarrhea along with chest pain and shortness of breath. Problem list: -N/V/D 2/2 DKA anion gap metabolic acidosis most likely due to insulin pump malfunction. -Pseudohypernatremia due to above. -Volume depletion due to above. -KIRAN on CKD stage III. -Chest pain with SOB. -Elevated Trop with EKG changes of mild ST-elevation in V1 and nonspecific ST-T changes V4.5.6 -Lactic acidosis-resolved -Leukocytosis. Hospital course: In ED he was found to have severe anion gap metabolic acidosis with bicarbonate of 9, hyperlipidemia potassium 5.9 and blood glucose of 517, + troponin of 0.32. He received a total of 3 L normal saline bolus and started on insulin drip after receiving 10 units of Novolin IV, also patient started on bicarbonate drip after receiving 50 mg bicarbonate and full dose of ASA, IV zofran and was started on heparin drip. the bicarbonate drip was DC on the same day of admission as his HCO3 improve. Due to the above issues patient was admitted to the ICU, his insulin drip adjusted according to his every hour Accu-Chek and the fluid was changed accordingly, his anion gap closed and his bicarbonate improved. Also, as recommended by outside machinist supervisor we start bridging the patient with 12 units of Levemir twice a day, patient received 12 units of Levemir in a.m. after discussion with outside machinist supervisor we decrease it to be 7 units twice a day starting from tonight. NovoLog sliding scale coverage every 4 hours as following Sliding scale NovoLog Q 4 hrs should be: 80-150 give 3 units NovoLog, 151-200 give 3 units NovoLog, 201-250 give 4 units NovoLog, 251-300 give 5 units NovoLog , 301-350 give 6 units NovoLog, 351-400 give 7 units NovoLog, > 401 give 8 units NovoLog. Patient will need to be evaluated by outside machinist supervisor as soon as arriving to the [facility] for further evaluation and adjustment of his insulin regimen also we need to follow with his outside machinist supervisor after discharge to follow closely regarding his insulin pump shows. His HA1C= 7.9. Prior to discharge we take him off his insulin drip after we overlap with Levemir 12 units, his Accu-Chek between 84 and 120. he still on D5W 1/2 NS @ 125cc/hr. we cont the above Sliding scale of NovoLog every 4 hrs. Up on arrival to the [facility] his insulin regimen and blood sugar need to be follow closely, upon transfer we'll continue doing every 1hr Accu-Chek and adjusting the IV fluid to keep his blood sugar between 150 and 200, tell The patient evaluated by outside machinist supervisor at [place]. On presentation patient complain of chest pain all over his chest, radiating to the back 7-8 out of 10 in severity, aching in nature associated with some shortness of breath. his troponin trend from 0.32 >> 1.09 >> 3.98 >> 16.00 with no significant change in his EKG comparing with presentation. After the patient received 1 dose of sublingual nitroglycerin and his gabapentin patient deny any chest pain or difficulty breathing and his vitals were stable. Echocardiogram done. Due to his his risk factors the Dr. Lisandra sepulveda embalmer assistant contact his embalmer assistant and he accepted him to be transferred for cardiac cath and evaluation. Upon transfer continue the patient IV heparin, patient received the this dose of aspirin, and due to his KIRAN on CKD stage III we held his home MATT inhibitor medication that need to be restarted after cardiac cath, his baseline creatinine is 1.5-1.6 currently the patient has a creatinine of 1.8. Also, we decreased his gabapentin to 300 twice daily. His leukocytosis patient was pancultured, urine analysis did not show any signs of urinary tract infection, patient has an issue with his urination so a Sanchez catheter was placed and its drain 1 L of urine. We'll hold off any antibiotic as the patient afebrile. His lactic acidosis after trend and fluid hydration came back to normal. Allergies: Coded Allergies: No Known Allergies (10/04/15) Significant Procedures: EXAM TYPE: CARD - ECHOCARDIOGRAM FINDINGS Left Ventricle Normal size left ventricle. Normal left ventricular ejection fraction visually estimated at >60%. Normal left ventricular wall motion. Right Ventricle Normal right ventricular size and function. Right Atrium Normal right atrial size. Left Atrium Normal left atrial size. Mitral Valve Structurally normal mitral valve. Trace mitral regurgitation. Aortic Valve Structurally normal trileaflet aortic valve. No aortic stenosis. No aortic regurgitation. Tricuspid Valve Tricuspid valve not well visualized, grossly normal. Mild tricuspid regurgitation. Right ventricular systolic pressure estimated to be elevated at 57 mmHg. Pulmonic Valve Pulmonic valve not well visualized, grossly normal. Trace pulmonic regurgitation. Pericardium No pericardial effusion. Great Vessels Normal size aortic root. CONCLUSIONS Normal size left ventricle. Normal left ventricular ejection fraction visually estimated at > 60%. Normal left ventricular wall motion. Trace mitral regurgitation. Mild tricuspid regurgitation. Right ventricular systolic pressure estimated to be elevated at 57 mmHg. Trace pulmonic regurgitation. Pertinent Lab Results: Laboratory Tests 07/30/17 0645: Urine Color YEL, Urine Clarity CLEAR, Urine pH 6.0, Ur Specific [place] 1.020, Urine Protein NEG, Urine Ketones 15 H, Urine Nitrite NEG, Urine Bilirubin NEG, Urine Urobilinogen 0.2, Ur Leukocyte Esterase NEG, Ur Microscopic EXAM NOT REQUIRED, Urine Hemoglobin NEG, Urine Glucose >=1000 H 07/30/17 0600: Troponin I 16.00 *H 07/30/17 0600: Anion Gap 10, Estimated GFR 37 L, Glucose 246 H, Calcium 8.2 L, Phosphorus 3.3, Magnesium 1.9, Total Bilirubin 0.4, AST 55, ALT 32, Albumin 3.0 L, CBC w Diff MAN DIFF ORDERED, RBC 3.50 L, MCV 89.6, MCH 30.7, MCHC 34.3, RDW 14.1, MPV 9.6, Gran % 87.1 H, Lymphocytes % 6.2 L, Monocytes % 6.7, Eosinophils % 0, Basophils % 0, Absolute Granulocytes 19.8 H, Segmented Neutrophils 86 H, Band Neutrophils 1, Absolute Lymphocytes 1.4, Lymphocytes 10 L, Monocytes 2, Absolute Monocytes 1.5 H, Absolute Eosinophils 0, Absolute Basophils 0, Metamyelocytes 1, Platelet Estimate ADEQUATE, Polychromasia 1+, Ovalocytes FEW, Fld Total RBCs Counted 100 07/30/17 0500: Hemoglobin A1c Pending 07/30/17 0210: APTT 111 *H 07/29/17 2315: Anion Gap 16, Estimated GFR 35 L, BUN/Creatinine Ratio 24.0, Lactic Acid 1.6, Troponin I 3.98 *H 07/29/170: Anion Gap 18 H, Estimated GFR 35 L, Glucose 512 *H, Calcium 7.8 L, Phosphorus 3.9, Magnesium 1.9, Total Bilirubin 0.5, AST 25, ALT 25, Albumin 3.0 L 07/29/172129: Sodium Cancelled, Potassium Cancelled, Chloride Cancelled, Carbon Dioxide Cancelled, Anion Gap Cancelled, BUN Cancelled, Creatinine Cancelled, BUN/ Creatinine Ratio Cancelled 07/29/172019: Troponin I 1.02 *H 07/29/172019: Lactic Acid 2.5 H 07/29/172019: Bicarbonate Actual 11 L, Mixed VBG pH 7.21 L, Mixed VBG pCO2 28 L, Mixed VBG O2 Saturation 51 H, Carboxyhemoglobin 0.2 L, O2 Concentration % R/A, Anion Gap 20 H, Estimated GFR 33 L, Glucose 555 *H, Calcium 8.0 L, Phosphorus 4.8 H, Magnesium 1.9, Total Bilirubin 0.5, AST 22, ALT 28, Albumin 3.3 L, Phlebotomy Draw Site VENOUS 07/29/17 1726: Anion Gap 25 H, Estimated GFR 29 L, BUN/Creatinine Ratio 20.9, Glucose 617 *H, Insulin Level 0.6 L, Serum Osmolality 333 H, Lactic Acid 4.0 H, Calcium 8.8, Magnesium 2.0, Total Bilirubin 0.6, AST 20, ALT 26, Alkaline Phosphatase 110, Troponin I 0.32 *H, Total Protein 6.2 L, Albumin 3.7, Globulin 2.5, Albumin/ Globulin Ratio 1.5, TSH 2.260, Free T4 2.42 H, Cortisol PM Sample 78.4 H, CBC w Diff MAN DIFF ORDERED, RBC 3.88 L, MCV 90.4, MCH 30.1, MCHC 33.3, RDW 14.7 H , MPV 10.4, Gran % 91.3 H, Lymphocytes % 5.6 L, Monocytes % 2.8, Eosinophils % 0.1, Basophils % 0.2, Absolute Granulocytes 19.9 H, Segmented Neutrophils 84 H , Band Neutrophils 2, Absolute Lymphocytes 1.2, Lymphocytes 10 L, Monocytes 4, Absolute Monocytes 0.6, Absolute Eosinophils 0, Absolute Basophils 0, Platelet Estimate ADEQUATE, Normocytic RBCs VERIFIED, Acetone Level POSITIVE AT 1:8 DIL 07/29/17 1722: TSH Cancelled, Free T4 Cancelled Microbiology 07/30 0757 URINE ROUT: Urine Culture - ORD 07/30 0645 URINE ROUT: Urine Culture - RECD 07/29 2199 UPPER RESP: Surveillance Culture - RECD 07/29 2199 GI: Surveillance Culture - RECD 07/30 2019 BLOOD: Blood Culture - RECD 07/29 2008 BLOOD: Blood Culture - RECD 07/29 192 URINE ROUT: Urine Culture - COLB 07/29 1728 NASOPHARYN: Influenza Virus A & B Rapid Smear - COMP Disposition Summary Disposition Principal Diagnosis: -N/V/D 2/2 DKA anion gap metabolic acidosis most likely due to insulin pump malfunction. -KIRAN on CKD stage III. -Elevated Trop with EKG changes of mild ST-elevation in V1 and nonspecific ST-T changes V4.5.6 Additional Diagnosis: -Lactic acidosis-resolved -Leukocytosis. Discharge Disposition: [facility] ([place] ) Discharge Instructions General Discharge Information Code Status: Full Code Patient's Diet: Diabetic diet Patient's Activity: As torleated Follow-Up Instructions/Appts: Up on arrival to the [facility] his insulin regimen and blood sugar need to be follow closely, upon transfer we'll continue doing every Accu-Chek and adjusting the IV fluid to keep his blood sugar between 150 and 200, tell The patient evaluated by outside machinist supervisor at [place]. Please follow-up with a embalmer assistant after discharge Please follow-up with your primary care doctor the discharge Please follow-up with her outside machinist supervisor after discharge to follow and assess your insulin pump function. Medications at Discharge Discharge Medications: Stop taking the following medications: Desloratadine (Clarinex) 5 MG TABLET ORAL DAILY Qty = 90 Gabapentin (Gabapentin) 300 MG CAPSULE ORAL 4 TIMES A DAY Qty = 270 Ramipril (Ramipril) 10 MG CAPSULE ORAL TWICE DAILY Qty = 180 Continue taking these medications: Sertraline HCl (Sertraline HCl) 100 MG TABLET 0.5 Tablet ORAL DAILY Qty = 225 Comments: LAST GIVEN: 07/30/17 @ 1000 Levothyroxine Sodium (Levothyroxine Sodium) 112 MCG TABLET 1 Tablet ORAL DAILY BEFORE BREAKFAST Qty = 90 Comments: LAST GIVEN: 07/30/17 @ 0700 [Veramy] Comments: Last Taken: NOT GIVEN IN HOSPITAL Time: Alprazolam (Alprazolam) 0.5 MG TABLET 1 Tablet ORAL THREE TIMES DAILY as needed for ANXIETY Qty = 90 Comments: Last Taken: NOT GIVEN IN HOSPITAL Time: Dutasteride (Avodart) 0.5 MG CAPSULE 1 Capsule ORAL DAILY Qty = 90 Comments: Last Taken: NOT GIVEN IN HOSPITAL Time: Aspirin (Ecotrin*) 81 MG TABLET.DR 1 Tablet ORAL DAILY Comments: LAST GIVEN: 07/30/17 1000 Cholecalciferol (Vitamin D3) (Vitamin D3) (Unknown Strength) CAPSULE Unknown Dose ORAL DAILY Comments: Last Taken: NOT GIVEN IN HOPITAL Time: Pravastatin Sodium (Pravastatin Sodium) 20 MG TABLET 1 Tablet ORAL DAILY Qty = 90 Comments: LAST GIVEN: 07/30/17 @ 1000 Start taking the following new medications: Insulin Detemir (Levemir) 100 UNIT/ML VIAL 7 Unit Inject into fatty tissue TWICE DAILY Days = 5 No Refills Gabapentin (Gabapentin) 300 MG CAPSULE 300 Milligram ORAL TWICE DAILY Days = 28 No Refills Ondansetron HCl/Pf (Ondansetron HCl 4 MG/2 Ml Vial) 4 MG/2 ML VIAL 4 Milligram INTRAVEN EVERY SIX HOURS NEEDED as needed for NAUSEA/VOMITING Days = 1 No Refills Pantoprazole Sodium (Pantoprazole Sodium) 40 MG VIAL 40 Milligram INTRAVEN DAILY Days = 1 No Refills Heparin (Heparin-1/2NS 25,000 Units/500) 25,000 UNIT/500 ML (50 UNIT/ML) IV.SOLN 1 Bag INTRAVEN GIVE ONCE Days = 1 No Refills Insulin Aspart (Novolog) 100 UNIT/ML VIAL 0 Inject into fatty tissue Every 4 hours Days = 1 No Refills Instructions: Blood Insulin Sugar Units <150 0 151-200 3 201-250 4 251-300 5 301-350 6 351-400 7 >400 8 Call Doctor Copies To: Lester LOPEZ,Ashwin Ríos; Rafi LOPEZ,Titi Hernandez; Stacey LOPEZ,Nas Buitrago; Lisandra LOPEZ, Nas
--- NOTE | 2017-07-30 10:05 | PN- Cardiology ---
Subjective Subjective: The patient is feeling better this morning. No further chest pain. No shortness of breath. No palpitations. No nausea or vomiting. DKA is significantly improved after treatment overnight with insulin drip. Troponin level has increased to 16. EKG does not show any ST elevation. The patient had urinary retention requiring straight cath Objective Vital Signs and I&Os Vital Signs Date Time Temp Pulse Resp B/P B/P Pulse O2 O2 Flow FiO2 Mean Ox Delivery Rate 07/31 799 98.4 74 22 100/42 96 Room Air 07/30 0000 99.5 92 18 92/53 99 Room Air 07/29 2110 98.7 108 28 120/62 100 Room Air 07/29 1953 96.7 108 28 124/63 99 Room Air 07/29 1908 96.8 108 28 127/64 99 Room Air 07/29 1814 96.8 108 24 122/60 99 Room Air 07/29 1738 98 Room Air 07/29 1704 96.6 110 24 163/69 100 Intake & Output 07/30 1600 07/30 0807/30 0000 07/29 1600 07/30 0700 07/29 0000 Intake Total 1590 2223 Output Total 1000 Balance 590 2223 Intake, IV 1590 2223 Output, Urine 1000 Patient 154 lb Weight Weight Reported by Patient Measurement Method Physical Exam: Gen: The patient is in no acute distress HEENT: Normal nose, ears, and oropharynx. Pupils equal bilaterally. Conjunctiva normal. Neck: Supple with no JVD, no masses, and no thyromegaly Lungs: Clear to auscultation with normal respiratory effort Heart: RRR, S1, S2, 1/6 systolic murmur. No peripheral edema, 2+ pulses in the lower extremities bilaterally Abdomen: Soft, nontender, no masses. No hepatomegaly. No splenomegaly Extremities: No clubbing or cyanosis. Normal muscle strength in the upper and lower extremities Skin: Normal skin turgor with no skin ulcers or lesions noted. Neuro: Cranial nerves intact. Sensation intact Psych: Alert and oriented x 3 with appropriate affect Current Medications: Current Medications Sig/Mary Start time Last Medication Dose Route Stop Time Status Admin Acetaminophen 650 MG Q6P PRN 07/29 1930 DC PO Alprazolam 0.5 MG TID PRN 07/29 2014 AC PO 08/05 2013 Aspirin 81 MG DAILY 07/30 1000 AC PO Aspirin 0 .STK-MED ONE 07/29 1819 DC PO Aspirin 325 MG ONCE ONE 07/29 1815 DC /08 PO 07/29 181 1813 Gabapentin 300 MG BID 07/30 1000 AC PO Gabapentin 0 .STK-MED ONE 07/29 2112 DC PO Gabapentin 300 MG 4 TIMES/DAY 07/29 192 DC 07/29 PO 3 Heparin Sodium 4,000 UNIT ONCE ONE 07/29 194 DC 07/29 (Porcine) IV 07/29 Heparin Sodium 0 .STK-MED ONE 07/29 1944 DC (Porcine) .ROUTE Heparin Sodium 25,000 UNIT Q24H 07/29 1930 AC 07/29 (Porcine) IV 194 Sodium Chloride 500 ML Hydrocodone Bitart/ 1 TAB Q8P PRN 07/29 1929 DC Acetaminophen PO Insulin Aspart 0 Q4 07/30 0945 UNVr SC Insulin Detemir 12 UNITS BID 07/30 0845 UNVr 07/30 SC 0946 Insulin Human Regular 100 UNIT Q24H 07/30 0000 AC 07/30 Sodium Chloride 100 ML IV 0603 Insulin Human Regular 100 UNIT DAILY 07/29 2014 DC Sodium Chloride 100 ML IV Insulin Human Regular 10 UNITS ONCE ONE 07/29 1800 DC 07/29 IV 07/29 1801 1804 Insulin Human Regular 100 UNIT ONCE ONE 07/29 1800 DC 07/29 Sodium Chloride 100 ML IV 07/29 1801 1854 Levothyroxine Sodium 0.112 MG DAILY AC 07/30 0700 AC 07/30 PO 0707 Lisinopril 40 MG BID 07/30 1000 CAN PO Morphine Sulfate 2 MG Q4P PRN 07/29 1930 AC IV Nitroglycerin 0 .STK-MED ONE 07/29 194 DC SL Nitroglycerin 0.4 MG ONCE ONE 07/29 1930 DC 07/29 SL 07/29 193 1953 Ondansetron HCl 4 MG Q6P PRN 07/29 193 AC IV Ondansetron HCl 0 .STK-MED ONE 07/29 1736 DC .ROUTE Ondansetron HCl 4 MG ONCE ONE 07/29 1730 DC 07/29 IV 07/29 1731 1734 Pantoprazole Sodium 0 .STK-MED ONE 07/29 2112 DC IV Pantoprazole Sodium 40 MG DAILY 07/29 2100 AC 07/29 IV 211 Potassium Chloride 20 MEQ Q6H 07/30 0745 AC 07/30 Dextrose/Sodium 1,000 ML IV 0851 Chloride Potassium Chloride 20 MEQ CONTINOUS INFUSION 07/30 0700 CAN IV Potassium Chloride 20 MEQ 150 MLS/HR 07/30 0630 DC IV Potassium Chloride 20 MEQ Q6H 07/29 2215 DC 07/30 Sodium Chloride 1,000 ML IV 0000 Pravastatin Sodium 20 MG DAILY 07/29 2009 AC PO Sertraline HCl 50 MG DAILY 07/30 1000 AC PO Sodium Bicarbonate 150 MEQ Q8H 07/30 0430 CAN Dextrose/Water 1,000 ML IV Sodium Bicarbonate 50 MEQ ONCE ONE 07/29 1830 DC 07/29 IV 07/29 1831 1845 Sodium Bicarbonate 150 MEQ CONTINOUS INFUSION 07/29 1830 DC 07/29 Dextrose/Water 1,000 ML IV 07/30 0429 2035 Sodium Chloride 1,000 ML Q5H 07/29 2100 AC IV Sodium Chloride 1,000 ML Q6H 07/29 2045 DC 07/29 IV 2046 Sodium Chloride 1,000 ML BOLUS ONE 07/29 1830 DC 07/29 IV 07/29 1929 1845 Sodium Chloride 1,000 ML BOLUS ONE 07/29 1715 DC 07/29 IV 07/29 1814 1734 Sodium Chloride 1,000 ML BOLUS ONE 07/29 1715 DC 07/29 IV 07/29 1814 1734 Results Last 48 Hrs of Labs/Mics: Laboratory Tests 07/30/17 0645: Urine Color YEL, Urine Clarity CLEAR, Urine pH 6.0, Ur Specific [place] 1.020, Urine Protein NEG, Urine Ketones 15 H, Urine Nitrite NEG, Urine Bilirubin NEG, Urine Urobilinogen 0.2, Ur Leukocyte Esterase NEG, Ur Microscopic EXAM NOT REQUIRED, Urine Hemoglobin NEG, Urine Glucose >=1000 H 07/30/17 0600: Troponin I 16.00 *H 07/30/17 0600: Anion Gap 10, Estimated GFR 37 L, Glucose 246 H, Calcium 8.2 L, Phosphorus 3.3, Magnesium 1.9, Total Bilirubin 0.4, AST 55, ALT 32, Albumin 3.0 L, CBC w Diff MAN DIFF ORDERED, RBC 3.50 L, MCV 89.6, MCH 30.7, MCHC 34.3, RDW 14.1, MPV 9.6, Gran % 87.1 H, Lymphocytes % 6.2 L, Monocytes % 6.7, Eosinophils % 0, Basophils % 0, Absolute Granulocytes 19.8 H, Segmented Neutrophils 86 H, Band Neutrophils 1, Absolute Lymphocytes 1.4, Lymphocytes 10 L, Monocytes 2, Absolute Monocytes 1.5 H, Absolute Eosinophils 0, Absolute Basophils 0, Metamyelocytes 1, Platelet Estimate ADEQUATE, Polychromasia 1+, Ovalocytes FEW, Fld Total RBCs Counted 100 07/30/17 0500: Hemoglobin A1c Pending 07/30/17 0210: APTT 111 *H 07/29/17 2315: Anion Gap 16, Estimated GFR 35 L, BUN/Creatinine Ratio 24.0, Lactic Acid 1.6, Troponin I 3.98 *H 07/29/17 2150: Anion Gap 18 H, Estimated GFR 35 L, Glucose 512 *H, Calcium 7.8 L, Phosphorus 3.9, Magnesium 1.9, Total Bilirubin 0.5, AST 25, ALT 25, Albumin 3.0 L 07/29/17 213: Sodium Cancelled, Potassium Cancelled, Chloride Cancelled, Carbon Dioxide Cancelled, Anion Gap Cancelled, BUN Cancelled, Creatinine Cancelled, BUN/ Creatinine Ratio Cancelled 07/29/172019: Troponin I 1.02 *H 07/29/172019: Lactic Acid 2.5 H 07/29/172019: Bicarbonate Actual 11 L, Mixed VBG pH 7.21 L, Mixed VBG pCO2 28 L, Mixed VBG O2 Saturation 51 H, Carboxyhemoglobin 0.2 L, O2 Concentration % R/A, Anion Gap 20 H, Estimated GFR 33 L, Glucose 555 *H, Calcium 8.0 L, Phosphorus 4.8 H, Magnesium 1.9, Total Bilirubin 0.5, AST 22, ALT 28, Albumin 3.3 L, Phlebotomy Draw Site VENOUS 07/29/17 1726: Anion Gap 25 H, Estimated GFR 29 L, BUN/Creatinine Ratio 20.9, Glucose 617 *H, Insulin Level 0.6 L, Serum Osmolality 333 H, Lactic Acid 4.0 H, Calcium 8.8, Magnesium 2.0, Total Bilirubin 0.6, AST 20, ALT 26, Alkaline Phosphatase 110, Troponin I 0.32 *H, Total Protein 6.2 L, Albumin 3.7, Globulin 2.5, Albumin/ Globulin Ratio 1.5, TSH 2.260, Free T4 2.42 H, Cortisol PM Sample 78.4 H, CBC w Diff MAN DIFF ORDERED, RBC 3.88 L, MCV 90.4, MCH 30.1, MCHC 33.3, RDW 14.7 H , MPV 10.4, Gran % 91.3 H, Lymphocytes % 5.6 L, Monocytes % 2.8, Eosinophils % 0.1, Basophils % 0.2, Absolute Granulocytes 19.9 H, Segmented Neutrophils 84 H , Band Neutrophils 2, Absolute Lymphocytes 1.2, Lymphocytes 10 L, Monocytes 4, Absolute Monocytes 0.6, Absolute Eosinophils 0, Absolute Basophils 0, Platelet Estimate ADEQUATE, Normocytic RBCs VERIFIED, Acetone Level POSITIVE AT 1:8 DIL 07/29/17 1722: TSH Cancelled, Free T4 Cancelled Microbiology 07/29 1729 NASOPHARYN: Influenza Virus A & B Rapid Smear - COMP Recent Imaging Studies: EKG tracing is reviewed and reveals sinus rhythm at 92, low voltage, borderline T-wave abnormality Assessment/Plan Assessment/Plan Assessment: 1. Type 1 diabetes 2. DKA, improved on insulin drip 3. Non-ST elevation myocardial infarction with troponin of 16 4. Acute on chronic renal insufficiency Plan: * Continue Aspirin * Continue IV heparin * Transfer to [facility] for [facility] catheter[facility] today. Accepted by Dr. Ibarra * Will hold off for now and starting a second antiplatelet medication unless he has further cardiac symptoms * Echocardiogram pending Continue telemetry? Yes
[2017-07-30] MEDS ORDERED: NOVOLOG100 UNIT/2 SC (10:57)
--- NOTE | 2017-07-30 10:59 | Patient Discharge Instructions ---
Discharge Instructions General Discharge Information You were seen/treated for: -N/V/D 2/2 DKA anion gap metabolic acidosis most likely due to insulin pump malfunction. -Pseudohypernatremia due to above. -Volume depletion due to above. -KIRAN on CKD stage III. -Chest pain with SOB. -Elevated Trop with EKG changes of mild ST-elevation in V1 and nonspecific ST-T changes V4.5.6 -Lactic acidosis-resolved -Leukocytosis. Special Instructions: Up on arrival to the [facility] his insulin regimen and blood sugar need to be follow closely, upon transfer we'll continue doing every Accu-Chek and adjusting the IV fluid to keep his blood sugar between 150 and 200, tell The patient evaluated by forge hand at [place]. Please follow-up with a ux research associate after discharge Please follow-up with your primary care doctor the discharge Please follow-up with her forge hand after discharge to follow and assess your insulin pump function. Diet Continue normal diet: No Recommended Diet: Diabetic Activity Full Activity/No Limits: No Acute Coronary Syndrome Inclusion Criteria At [place] or during hospital stay patient has or had the following: ACS DIAGNOSIS Yes Discharge Core Measures Meds if any: Prescribed or Continued at Discharge MATT/ARB if EF <40% Yes Aspirin Yes Beta-Cory No Statin Yes Meds if any: NOT Prescribed or Continued at Discharge Congestive Heart Failure Inclusion Criteria At [place] or during hospital stay patient has or had the following: CHF DIAGNOSIS No Discharge Core Measures Meds if any: Prescribed or Continued at Discharge Meds if any: NOT Prescribed or Continued at Discharge Cerebrovascular accident Inclusion Criteria At DC or during hospital stay patient has or had the following: CVA/TIA Diagnosis No Discharge Core Measures Meds if any: Prescribed or Continued at Discharge Meds if any: NOT Prescribed or Continued at Discharge Venous thromboembolism Inclusion Criteria VTE Diagnosis No VTE Type NONE VTE Confirmed by (Test) NONE Discharge Core Measures - Per Current guidelines, there needs to be overlap - treatment for the first 5 days of Warfarin therapy. - If discharged on Warfarin prior to 5 days of - overlap therapy, the patient will need to be - assessed for post discharge needs including - *Post discharge parental anticoagulation - *Warfarin and/or parental anticoagulation education - *Follow up date to check INR post discharge At least 5 days overlap therapy as Inpatient No Meds if any: Prescribed or Continued at Discharge Note: Overlap Therapy is Warfarin and Anticoagulant Meds if any: NOT Prescribed or Continued at Discharge
[2017-07-30] MEDS ORDERED: PANTOPRAZOLE SO40 M2 IV (11:46)
[2017-07-30] MEDS ORDERED: ONDANSETRON4 MG/2 M3 IV (11:46)
[2017-07-30 12:35] LABS: PTT 41 SEC (25-37)
--- NOTE | 2017-07-30 12:48 | ECHOCARDIOGRAM REPORT ---
DEBO RUBALCAVA Age: 57 : 1960 Gender: M Exam Date: 07/30/2017 09:52 Exam Location: [facility] Ht (in): 68 Wt (lb): 145 BSA: 1.78 BP: 106 / 62 Ordering Physician: Pablo Hansen MD Referring Physician: Pablo Hansen MD Technologist: Zaki Kong [facility] Room Number: 112 Indications: Chest Pain Rhythm: Technical Quality: FINDINGS Left Ventricle Normal size left ventricle. Normal left ventricular ejection fraction visually estimated at >60%. Normal left ventricular wall motion. Right Ventricle Normal right ventricular size and function. Right Atrium Normal right atrial size. Left Atrium Normal left atrial size. Mitral Valve Structurally normal mitral valve. Trace mitral regurgitation. Aortic Valve Structurally normal trileaflet aortic valve. No aortic stenosis. No aortic regurgitation. Tricuspid Valve Tricuspid valve not well visualized, grossly normal. Mild tricuspid regurgitation. Right ventricular systolic pressure estimated to be elevated at 57 mmHg. Pulmonic Valve Pulmonic valve not well visualized, grossly normal. Trace pulmonic regurgitation. Pericardium No pericardial effusion. Great Vessels Normal size aortic root. CONCLUSIONS Normal size left ventricle. Normal left ventricular ejection fraction visually estimated at > 60%. Normal left ventricular wall motion. Trace mitral regurgitation. Mild tricuspid regurgitation. Right ventricular systolic pressure estimated to be elevated at 57 mmHg. Trace pulmonic regurgitation. Nas Fry M.D. (Electronically Signed) Final Date: 30 July 2017 12:47 MEASUREMENTS (Male / Female) Normal Values 2D ECHO LV Diastolic Diameter PLAX 4.4 cm 4.2 - 5.9 / 3.9 - 5.3 cm LV Systolic Diameter PLAX 2.9 cm 2.1 - 4.0 cm LV Fractional Shortening PLAX 34.1 % 25 - 46 % LV Ejection Fraction 2D Teich 63.3 % IVS Diastolic Thickness 0.9 cm LVPW Diastolic Thickness 1.0 cm LV Relative Wall Thickness 0.4 LVOT Diameter 1.7 cm Aortic Root Diameter 2.7 cm LA Systolic Diameter LX 3.2 cm 3.0 - 4.0 / 2.7 - 3.8 cm Ascending Aorta Diameter 2.8 cm DOPPLER AV Peak Velocity 150.0 cm/s AV Peak Gradient 9.0 mmHg AV Mean Velocity 100.0 cm/s AV Mean Gradient 5.0 mmHg AV Velocity Time Integral 33.2 cm LVOT Peak Velocity 125.0 cm/s LVOT Peak Gradient 6.3 mmHg LVOT Mean Velocity 76.7 cm/s LVOT Mean Gradient 3.0 mmHg LVOT Velocity Time Integral 27.9 cm LVOT Stroke Volume 63.3 cm AV Area Cont Eq vti 1.9 cm AV Area Cont Eq pk 1.9 cm MV Peak Velocity 75.7 cm/s MV Peak Gradient 2.3 mmHg MV Mean Velocity 45.1 cm/s MV Mean Gradient 1.0 mmHg Mitral E Point Velocity 85.9 cm/s Mitral A Point Velocity 58.7 cm/s Mitral E to A Ratio 1.5 MV PHT Velocity 76.0 cm/s MV Deceleration Hawkins 317.0 cm/s MV Pressure Half Time 71.9 ms MV Area PHT 3.1 cm MV Deceleration Time 176.0 ms TR Peak Velocity 359.0 cm/s TR Peak Gradient 51.6 mmHg Right Atrial Pressure 10.0 mmHg Pulmonary Artery Systolic Pressu 61.6 mmHg Right Ventricular Systolic Press 61.6 mmHg PV Peak Velocity 86.9 cm/s PV Peak Gradient 3.0 mmHg PV Mean Velocity 58.4 cm/s PV Mean Gradient 1.5 mmHg PV Velocity Time Integral 22.1 cm LV E' Lateral Velocity 14.6 cm/s Mitral E to LV E' Lateral Ratio 5.9 LV E' Septal Velocity 11.3 cm/s Mitral E to LV E' Septal Ratio 7.6
== END 2017-07-30 14:00 | disposition short-term general hospital (02) | DRG 919 ==
LOC: ERH 16:52 → ERHI 18:03 → CRI 18:03 → ENRESERV 20:24 → ENTRNSPT 21:41 → CRI 22:05 → CMPTRNSPT 22:08 → CRI 07-30 08:47
PROVIDERS: Internal Medicine; Internal Medicine Hematology & Oncology; Physician Assistant
DX: T85.618A Breakdown (mechanical) of other specified internal prosthetic devices, implants and grafts, initial encounter (principal); I21.4 Non-ST elevation (NSTEMI) myocardial infarction; E10.10 Type 1 diabetes mellitus with ketoacidosis without coma; N17.9 Acute kidney failure, unspecified; N18.3 Chronic kidney disease, stage 3 (moderate); E10.22 Type 1 diabetes mellitus with diabetic chronic kidney disease; E10.40 Type 1 diabetes mellitus with diabetic neuropathy, unspecified; E03.9 Hypothyroidism, unspecified; E78.00 Pure hypercholesterolemia, unspecified; G25.81 Restless legs syndrome; F41.9 Anxiety disorder, unspecified; F32.9 Major depressive disorder, single episode, unspecified; Z79.4 Long term (current) use of insulin; Z96.41 Presence of insulin pump (external) (internal); E78.5 Hyperlipidemia, unspecified; N40.1 Benign prostatic hyperplasia with lower urinary tract symptoms; R33.8 Other retention of urine; E10.319 Type 1 diabetes mellitus with unspecified diabetic retinopathy without macular edema; D50.9 Iron deficiency anemia, unspecified; Y84.8 Other medical procedures as the cause of abnormal reaction of the patient, or of later complication, without mention of misadventure at the time of the procedure
CPT/HCPCS: CCU; 71045; 74176; 81003; 82436; 83525; 87040; 87070; 87086; 87804; 87804-59; 93005; 93010; 93306; J1644; J1815; J2405; J3480; J3490; J7042; J7060